=== PATIENT | female | born 1955 | race Caucasian/White ===

== ENCOUNTER 2019-06-04 08:07 | Outpatient (CLI) | payer OTHER, SELFPAY ==
[2019-06-04 09:07] LABS: Alanine Aminotransferase 19 U/L (4-35); Alkaline Phosphatase 79 U/L (38-126); Aspartate Amino Transferase 29 U/L (14-36); Bilirubin,Total 0.5 mg/dL (0.2-1.3); Blood Urea Nitrogen 21 mg/dL (7-17); Calcium 8.9 mg/dL (8.4-10.2); Carbon Dioxide 24 mmol/L (22-30); Chloride 103 mmol/L (98-107); Cholesterol 186 mg/dL (0-200); Estimated Glomerular Filt Rate > 60; Glucose 162 mg/dL (65-105); HDL Direct 50 mg/dL; Sodium 137 mmol/L (137-145); Triglycerides 64 mg/dL (<150)
[2019-06-04 09:17] LABS: LDL Cholesterol Direct 119 mg/dL
[2019-06-04 09:58] LABS: Creatinine Urine 150.9 mg/dL
[2019-06-04 10:03] LABS: MALB Creatinine Ratio 27.8 mg/g (0-30)
[2019-06-04 10:14] LABS: Vitamin D 25 Hydroxy 14.9 ng/mL
== END 2019-06-04 08:08 | disposition home or self-care (01) ==
PROVIDERS: PCP Family Medicine; Visit Provider Family Medicine
DX: Z13.6 Encounter for screening for cardiovascular disorders (principal); Z79.899 Other long term (current) drug therapy; E11.9 Type 2 diabetes mellitus without complications; E55.9 Vitamin D deficiency, unspecified
CPT/HCPCS: 36415; 80053; 80061; 82043; 82306; 83036

== ENCOUNTER 2019-06-07 15:24 | Outpatient (RCR) | payer OTHER, SELFPAY ==
[2019-03-30 14:13] LABS: INR 4.5; Prothrombin Time 42.1 Seconds (11.1-14.7)
[2019-04-12 14:19] LABS: INR 2.6; Prothrombin Time 27.6 Seconds (11.1-14.7)
[2019-05-20 14:09] LABS: INR 3.2
[2019-06-07 15:44] LABS: INR 2.9; Prothrombin Time 29.5 Seconds (11.1-14.7)
== END 2019-06-28 23:59 | disposition home or self-care (01) ==
LOC: ANHLAB 15:24
PROVIDERS: PCP Family Medicine; Visit Provider Specialist
DX: I48.91 Unspecified atrial fibrillation (principal); Z79.01 Long term (current) use of anticoagulants
CPT/HCPCS: 36415; 85610

== ENCOUNTER → 2019-08-03 18:07 | Outpatient (CLI) | payer OTHER, SELFPAY ==
--- NOTE | ~2019-08-03 | XR_ITS ---
EXAMINATION: XR foot LT min 3V EXAM DATE: 08/03/2019 18:26 INDICATION: Pain in left great toe underwent show mild, intermittent for months. TECHNIQUE: Left foot dorsoplantar, lateral and oblique projections obtained and reviewed. There is n o prior study for comparison. FINDINGS: Left metatarsal bones unremarkable. There are no bony erosions identified. There are no a cute fractures or dislocations identified. There is no subcutaneous gas. The soft tissue is unremar kable. There is a fibular plate. There is mild polyarticular primary osteoarthritis. Moderate-size d inferior calcaneal spur. IMPRESSION: Chronic findings as above. Reviewed, dictated and finalized at location A. IMPRESSION: Chronic findings as above.
== END ==
PROVIDERS: PCP Family Medicine; Visit Provider Family Medicine
DX: M79.672 Pain in left foot (principal)
CPT/HCPCS: 73630

== ENCOUNTER 2019-09-23 09:21 | Outpatient (RCR) | payer OTHER, SELFPAY ==
[2019-07-04 14:34] LABS: INR 2.5; Prothrombin Time 26.9 Seconds (11.1-14.7)
[2019-08-12 08:58] LABS: INR 2.8; Prothrombin Time 28.7 Seconds (11.1-14.7)
[2019-09-12 16:14] LABS: INR 1.4; Prothrombin Time 16.5 Seconds (11.1-14.7)
[2019-09-23 09:44] LABS: INR 2.8; Prothrombin Time 28.6 Seconds (11.1-14.7)
== END 2019-10-02 23:59 | disposition home or self-care (01) ==
LOC: ANHLAB 09:21
PROVIDERS: PCP Family Medicine; Visit Provider Specialist
DX: Z51.81 Encounter for therapeutic drug level monitoring (principal); I48.91 Unspecified atrial fibrillation; Z79.01 Long term (current) use of anticoagulants
CPT/HCPCS: 36415; 85610

== ENCOUNTER 2020-01-10 15:14 | Outpatient (RCR) | payer OTHER, SELFPAY ==
[2019-10-26 15:10] LABS: INR 2.7; Prothrombin Time 28.5 Seconds (11.1-14.7)
[2019-11-23 14:46] LABS: INR 2.8; Prothrombin Time 28.8 Seconds (11.1-14.7)
[2019-12-22 13:56] LABS: INR 3.6; Prothrombin Time 35.4 Seconds (11.1-14.7)
[2019-12-29 14:20] LABS: INR 3.4; Prothrombin Time 34.1 Seconds (11.1-14.7)
[2020-01-10 16:23] LABS: INR 2.1; Prothrombin Time 23.1 Seconds (11.1-14.7)
== END 2020-01-24 23:59 | disposition home or self-care (01) ==
LOC: ANHLAB 15:14
PROVIDERS: PCP Family Medicine; Visit Provider Specialist
DX: Z51.81 Encounter for therapeutic drug level monitoring (principal); I48.91 Unspecified atrial fibrillation; Z79.01 Long term (current) use of anticoagulants
CPT/HCPCS: 36415; 85610

== ENCOUNTER 2020-04-16 13:52 | Outpatient (RCR) | payer OTHER, SELFPAY ==
[2020-02-07 14:15] LABS: INR 2.1; Prothrombin Time 23.3 Seconds (11.1-14.7)
[2020-03-21 14:03] LABS: INR 2.4; Prothrombin Time 26.9 Seconds (11.1-14.7)
[2020-04-16 15:06] LABS: INR 2.2
== END 2020-05-07 23:59 | disposition home or self-care (01) ==
LOC: ANHLAB 13:52
PROVIDERS: PCP Family Medicine; Visit Provider Specialist
DX: Z51.81 Encounter for therapeutic drug level monitoring (principal); I48.91 Unspecified atrial fibrillation; I48.20 Chronic atrial fibrillation, unspecified; Z79.01 Long term (current) use of anticoagulants; Z79.899 Other long term (current) drug therapy
CPT/HCPCS: 36415; 85610

== ENCOUNTER 2020-05-19 07:38 | Outpatient (CLI) | payer OTHER, SELFPAY ==
[2020-05-19 08:33] LABS: Alanine Aminotransferase 19 U/L (4-35); Albumin Level 4.1 g/dL (3.5-5.1); Alkaline Phosphatase 61 U/L (38-126); Anion Gap 5 mmol/L (8-16); Aspartate Amino Transferase 28 U/L (14-36); Bilirubin,Total 0.5 mg/dL (0.2-1.3); Blood Urea Nitrogen 19 mg/dL (7-17); Carbon Dioxide 30 mmol/L (22-30); Chloride 105 mmol/L (98-107); Cholesterol 173 mg/dL (0-200); Estimated Glomerular Filt Rate > 60; Glucose 147 mg/dL (65-105); HDL Direct 50 mg/dL; Potassium 4.3 mmol/L (3.4-5.0); Sodium 140 mmol/L (137-145); Triglycerides 80 mg/dL (<150)
[2020-05-19 08:44] LABS: LDL Cholesterol Direct 100 mg/dL
[2020-05-19 09:31] LABS: Creatinine Urine 92.8 mg/dL
[2020-05-19 09:36] LABS: MALB Creatinine Ratio 25.2 mg/g (0-30); Microalbumin Urine Random 23.4 mg/L (0-16.7)
[2020-05-19 09:47] LABS: Vitamin D 25 Hydroxy 36.9 ng/mL
[2020-05-19 10:11] LABS: Hemoglobin A1C 6.4 % (<5.7)
== END 2020-05-19 07:39 | disposition home or self-care (01) ==
LOC: ANHLAB 07:44
PROVIDERS: PCP Family Medicine; Visit Provider Family Medicine
DX: E55.9 Vitamin D deficiency, unspecified (principal); E11.9 Type 2 diabetes mellitus without complications; Z13.6 Encounter for screening for cardiovascular disorders; Z79.899 Other long term (current) drug therapy
CPT/HCPCS: 36415; 80053; 80061; 82043; 82306; 83036

== ENCOUNTER 2020-07-11 14:47 | Outpatient (CLI) | payer OTHER, SELFPAY ==
--- NOTE | ~2020-07-11 | MM_ITS ---
EXAMINATION: MM screening [facility] BI w anuja HISTORY: Screening TECHNIQUE: Craniocaudal and mediolateral oblique 3-D tomosynthesis images were obtained and synthetic 2-D images were generated. CAD analysis was submitted and interpreted. COMPARISON: 11/08/2018, 08/20/2017, 07/16/2016 bilateral digital screening mammogram examinations BREAST PARENCHYMAL COMPOSITION: There are scattered areas of fibroglandular density. FINDINGS: Asymmetric approximately 5.5 mm opacity is noted in the posterior outer right breast on CC projection (craniocaudal Tomosynthesis image 17/54). Diagnostic right mammogram and right breast ultr asound examination are recommended. Otherwise there is no evidence of suspicious mass, calcification, or architectural distortion to sugg est malignancy in either breast. There has been no other suspicious interval change. IMPRESSION: 1. Asymmetric 5 x 5 mm opacity in the posterior outer right breast 2. Diagnostic right mammogram and right breast ultrasound examination are recommended. BI-RADS Category 0: Incomplete: Needs additional imaging evaluation. Reviewed, dictated and finalized at location A. [employer] IMPRESSION: 1. Asymmetric 5 x 5 mm opacity in the posterior outer right breast 2. Diagnostic right mammogram and right breast ultrasound examination are recom mended. BI-RADS Category 0: Incomplete: Needs additional imaging evaluation.
--- NOTE | ~2020-07-11 | DEXA_ITS ---
Bone Density Report Name: Maris Cho Age: 64 Sex: Female Ethnicity: White Date of : 1955 Indication: postmenopausal; height loss; prior fracture; Referring Provider: LOWELL, ARI Tan Study: Bone densitometry was performed. Exam Date: July 11, 2020 Accession number: [id number] Bone Density: Region BMD T-score Z-score Classification AP Spine (L1-L4) 1.088 0.4 2.0 Normal Femoral Neck (Left) 0.687 -1.5 0.0 Osteopenia Total Hip (Left) 0.905 -0.3 0.8 Normal Total Hip Bilateral Avg 0.927 -0.2 1.0 Normal Femoral Neck (Right) 0.699 -1.4 0.1 Osteopenia Total Hip (Right) 0.947 0.0 1.2 Normal World Health Organization criteria for BMD impression classify patients as: Normal (T-score at or above -1.0), Osteopenia (T-score between -1.0 and -2.5), or Osteoporosis (T-score at or below -2.5). 10-year Fracture Risk(1): Major Osteoporotic Fracture 12% Hip Fracture 1.1% Reported Risk Factors: [place] (), Neck BMD=0.687, BMI=40.2, previous fracture (1) FRAX(R) Version 3.08. Fracture probability calculated for an untreated patient. Fracture probability may be lower if the patient has received treatment. Previous Exams: Region Exam Age BMD T-score BMD Change BMD Change Date g/cm2 vs Baseline vs Previous AP Spine(L1-L4) 07/11/2020 64 1.088 0.4 0.025(2.3%)# -0.026(-2.4%)* 07/02/2016 60 1.114 0.6 0.051(4.8%)# 0.051(4.8%)# 08/24/2006 50 1.063 0.1 Total Hip(Left) 07/11/2020 64 0.905 -0.3 -0.122(-11.9%) 0.016(1.8%) 07/02/2016 60 0.889 -0.4 -0.138(-13.5%) -0.138(-13.5%) 08/24/2006 50 1.028 0.7 Total Hip(Right) 07/11/2020 64 0.947 0.0 -0.123(-11.5%) -0.010(-1.1%) 07/02/2016 60 0.958 0.1 -0.113(-10.5%) -0.113(-10.5%) 08/24/2006 50 1.071 1.1 *Denotes significance at 95% confidence level, LSC for AP Spine = 0.022 g/cm2, LSC for Total Hip = 0.027 g/cm2 Clinical Information Provided by Patient: Has had a low trauma fracture Has used the following medications: Vitamin D Patient maximum height was 66 Menopause Age: 47 No regular weight bearing exercise Drinks caffeinated beverages Onset of menses at age 14 Number of children 2 Impression: The patient has low bone mass, based on the Left Femoral Neck T-score. The patient has an estimated ten-year risk of hip fracture of 1.1% and an estimated ten-year risk of major fracture of 12%, based on the WHO FRAX algorithm. The patient has r
== END 2020-07-11 14:48 | disposition home or self-care (01) ==
LOC: ANHIMG 14:51
PROVIDERS: PCP Family Medicine; Visit Provider Family Medicine
DX: Z12.31 Encounter for screening mammogram for malignant neoplasm of breast (principal); Z78.0 Asymptomatic menopausal state; R92.8 Other abnormal and inconclusive findings on diagnostic imaging of breast; M85.852 Other specified disorders of bone density and structure, left thigh; M85.851 Other specified disorders of bone density and structure, right thigh
CPT/HCPCS: 77063; 77067; 77080

== ENCOUNTER 2020-07-13 13:50 | Outpatient (RCR) | payer OTHER, SELFPAY ==
[2020-05-19 08:32] LABS: INR 2.9; Prothrombin Time 30.7 Seconds (11.1-14.7)
[2020-06-20 14:02] LABS: INR 1.8; Prothrombin Time 21.5 Seconds (11.1-14.7)
[2020-07-13 14:27] LABS: INR 2.7; Prothrombin Time 29.1 Seconds (11.1-14.7)
== END 2020-08-17 23:59 | disposition home or self-care (01) ==
LOC: ANHLAB 13:50
PROVIDERS: PCP Family Medicine; Visit Provider Specialist
DX: Z51.81 Encounter for therapeutic drug level monitoring (principal); I48.20 Chronic atrial fibrillation, unspecified; I48.91 Unspecified atrial fibrillation; Z79.899 Other long term (current) drug therapy; Z79.01 Long term (current) use of anticoagulants
CPT/HCPCS: 36415; 85610

== ENCOUNTER 2020-08-06 11:38 | Outpatient (CLI) | payer OTHER, SELFPAY ==
--- NOTE | ~2020-08-06 | MMUS_ITS ---
EXAMINATION: MM diagnostic mammo unilat RT, US breast RT limited HISTORY: Asymmetric 5 x 5 mm opacity reported in posterior outer right breast on 07/11/2020 screening right mammogram views TECHNIQUE: Additional 3-D tomosynthesis images of the right breast were performed and synthetic 2-D i mages were generated. CAD analysis was submitted and interpreted. High resolution upper outer and low er-outer right breast ultrasound was performed. COMPARISON: 07/11/2020, 11/08/2018, 08/10/2017 bilateral digital screening mammogram examinations FINDINGS: MAMMOGRAPHIC FINDINGS: No reproducible suspicious mass or architectural distortion, malignant calcification, skin thickening or retraction is evident. ULTRASOUND: There is no evidence of focal abnormal solid or cystic lesion in the upper outer or lower outer right breast IMPRESSION: 1. No mammographic evidence of malignancy 2. Routine mammographic screening is recommended BI-RADS Category 1: Negative Reviewed, dictated and finalized at location A. IMPRESSION: 1. No mammographic evidence of malignancy 2. Routine mammographic screening is recommended BI-RADS Category 1: Negative
== END 2020-08-06 11:39 | disposition home or self-care (01) ==
LOC: ANHIMG 11:39
PROVIDERS: PCP Family Medicine; Visit Provider Family Medicine
DX: R92.8 Other abnormal and inconclusive findings on diagnostic imaging of breast (principal)
CPT/HCPCS: 76642; 77065

== ENCOUNTER 2020-10-22 13:51 | Outpatient (RCR) | payer OTHER, SELFPAY ==
[2020-08-20 16:53] LABS: INR 1.5; Prothrombin Time 18.3 Seconds (11.1-14.7)
[2020-08-31 14:15] LABS: INR 2.3; Prothrombin Time 25.8 Seconds (11.1-14.7)
[2020-09-24 13:59] LABS: INR 2.4; Prothrombin Time 26.9 Seconds (11.1-14.7)
[2020-10-22 14:26] LABS: INR 2.6; Prothrombin Time 28.3 Seconds (11.1-14.7)
== END 2020-11-18 23:59 | disposition home or self-care (01) ==
LOC: ANHLAB 13:51
PROVIDERS: PCP Family Medicine; Visit Provider Specialist
DX: Z51.81 Encounter for therapeutic drug level monitoring (principal); I48.20 Chronic atrial fibrillation, unspecified; Z79.899 Other long term (current) drug therapy; Z79.01 Long term (current) use of anticoagulants
CPT/HCPCS: 36415; 85610

== ENCOUNTER 2020-11-19 15:09 | Emergency (ER) | payer OTHER, SELFPAY ==
[2020-11-19 15:14] VITALS: BP 130/91; PULSE 98; RESP 18; TEMP 36.9; O2SAT 100
[2020-11-19 16:39] VITALS: BP 99/70; PULSE 101; RESP 16; O2SAT 99
[2020-11-19 17:02] LABS: Basophils Absolute Auto 0.1 K/mm3 (0.0-0.1); Basophils Percent Auto 1.1 % (0.2-1.2); Eosinophils Absolute Auto 0.5 K/mm3 (0-0.3); Eosinophils Percent Auto 6.3 % (0-4.4); Hemoglobin 12.6 g/dL (12.0-15.0); Immature Granulocyte Absolute 0.02 K/mm3 (0.00-0.031); Immature Granulocyte Percent A 0.3 % (0-0.5); Lymphocytes Absolute Auto 2.24 K/mm3 (0.9-3.2); Lymphocytes Percent Auto 29.4 % (18.3-44.2); Mean Corpuscular HGB Conc 31.5 g/dl (32-36); Mean Corpuscular Hemoglobin 30.1 pg (26-34); Mean Corpuscular Volume 95.5 fl (80-100); Mean Platelet Volume 9.6 fl (7.4-10.4); Monocytes Absolute Auto 0.5 K/mm3 (0.1-0.6); Monocytes Percent Auto 6.8 % (2.6-8.5); Neutrophils Absolute Auto 4.3 K/mm3 (1.3-6.7); Neutrophils Percent Auto 56.1 % (45.5-73.1); Platelet Count Result 226 k/mm3 (150-375); Red Blood Count 4.19 M/mm3 (4.2-5.4); Red Cell Distribution Width 14.1 % (11.5-14.5); White Blood Count 7.6 K/mm3 (4.5-10.0)
[2020-11-19 17:09] LABS: Alanine Aminotransferase 19 U/L (4-35); Albumin Level 4.2 g/dL (3.5-5.1); Alkaline Phosphatase 74 U/L (38-126); Anion Gap 8 mmol/L (8-16); Aspartate Amino Transferase 31 U/L (14-36); Bilirubin,Total 0.5 mg/dL (0.2-1.3); Blood Urea Nitrogen 19 mg/dL (7-17); Calcium 8.6 mg/dL (8.4-10.2); Carbon Dioxide 27 mmol/L (22-30); Chloride 107 mmol/L (98-107); Estimated CRCL calculation 71 ml/min; Estimated Glomerular Filt Rate > 60; Glucose 107 mg/dL (65-110); Potassium 3.7 mmol/L (3.4-5.0); Sodium 142 mmol/L (137-145)
[2020-11-19 17:11] LABS: INR 2.6; Prothrombin Time 27.3 Seconds (11.1-14.7)
[2020-11-19 17:12] LABS: Partial Thromboplastin Time 32.4 SECONDS (22.3-36.8)
--- NOTE | 2020-11-19 17:34 | ED.RECABL ---
HPI - Recheck/Abnormal Lab/Rx General Chief Complaint: Recheck/Abnormal Lab/Rx Stated Complaint: abnormal INR Time Seen by Provider: 11/19/20 17:23 History of Present Illness HPI narrative: 64 yo female w/ h/o atrial fibrillation presents to the ED for High INR. She had it checked this morning and she was called and told to come to the ED because it was high. On chart review it shows >19. She denies any symptoms. She has had no recent changes in dosage or diet. Related Data Home Medications Medication Instructions Recorded Confirmed digoxin 125 mcg (0.125 mg) tablet 125 mcg PO DAILY 03/20/20 03/26/20 gabapentin 600 mg tablet 600 mg PO DAILY 03/20/20 03/26/20 glipizide 5 mg tablet 5 mg PO DAILY 03/20/20 03/26/20 lisinopril 5 mg tablet 5 mg PO DAILY 03/20/20 03/26/20 metformin 500 mg tablet 500 mg PO DAILY 03/20/20 03/26/20 warfarin 6 mg tablet 6 mg PO DAILY 03/20/20 03/26/20 Allergies Allergy/AdvReac Type Severity Reaction Status Date / Time No Known Allergies Allergy Unknown Verified 11/19/20 15:17 Review of Systems Review of Systems: All systems reviewed & are unremarkable except as noted in HPI and below Constitutional: Constitutional: Denies weakness ENT: Denies dizziness Cardiovascular: Cardiovascular: Denies chest pain Respiratory: Respiratory: Denies dyspnea Gastrointestinal: Gastrointestinal: Reports no additional gastrointestinal complaints Genitourinary: Genitourinary: Denies hematuria Neurologic: Denies confusion and Denies headache(s) Hematologic/Lymphatic: Hematologic/Lymphatic: Denies easy bleeding and Denies easy bruising [facility] Past Medical History Medical History Diabetes Hypertension Family History Family History Father Family history of lung cancer Mother Family history of lung cancer Social History Social History Smoking status: Never smoker Alcohol intake: never Exam Const: General: healthy appearing, no acute distress and alert Orientation/consciousness: patient oriented x3 HENMT: Head: normal to inspection and no hematomas Resp: Effort & Inspection: normal respiratory effort Auscultation: clear to auscultation bilaterally Cardio: Rate: regular rate Rhythm: regular rhythm Skin: General skin exam: normal color and no pallor Wounds: no wounds Neuro: General: patient oriented x3 and moves all extremities Speech: normal speech Extrem: General: normal to inspection Course Vital Signs Vital signs: Vital Signs Temperature 36.9 C 11/19/20 15:14 Pulse Rate 98 11/19/20 15:14 Respiratory Rate 18 11/19/20 15:14 Blood Pressure 130/91 H 11/19/20 15:14 Pulse Oximetry 100 11/19/20 15:14 Temperature 36.9 C 11/19/20 15:14 Pulse Rate 82 11/19/20 18:02 Respiratory Rate 17 11/19/20 18:02 Blood Pressure 128/82 11/19/20 18:02 Pulse Oximetry 100 11/19/20 18:02 MDM - Recheck/Abnormal Lab/Rx MDM Narrative Medical decision making narrative: appears to be lab error Medical Records Attestation: I reviewed the patient's medical records. Lab Data Attestation: I reviewed the patient's lab results. Result diagrams: 11/19/20 16:50 11/19/20 16:50 Labs: Lab Results 11/19/20 11/19/20 11/19/20 Range/Units 16:50 16:50 16:50 WBC 7.6 (4.5-10.0) K/mm3 RBC 4.19 L (4.2-5.4) M/mm3 Hgb 12.6 (12.0-15.0) g/dL Hct 40.0 (37.0-47.0) % MCV 95.5 (80-100) fl MCH 30.1 (26-34) pg MCHC 31.5 L (32-36) g/dl RDW 14.1 (11.5-14.5) % Plt Count 226 (150-375) k/mm3 MPV 9.6 (7.4-10.4) fl Immature Gran % (Auto) 0.3 (0-0.5) % Neut % (Auto) 56.1 (45.5-73.1) % Lymph % (Auto) 29.4 (18.3-44.2) % [place] % (Auto) 6.8 (2.6-8.5) % Eos % (Auto) 6.3 H (0-4.4) % Baso % (Auto) 1.1 (0.2-1.2) % Lym
[2020-11-19 17:41] VITALS: BP 129/71; PULSE 66; RESP 16; O2SAT 100
[2020-11-19 18:02] VITALS: BP 128/82; PULSE 82; RESP 17; O2SAT 100
== END 2020-11-19 18:18 | disposition home or self-care (01) ==
LOC: ANHED 17:56
PROVIDERS: Emergency Provider Emergency Medicine; PCP Family Medicine
DX: R79.1 Abnormal coagulation profile (principal); I10 Essential (primary) hypertension; E11.9 Type 2 diabetes mellitus without complications; Z79.84 Long term (current) use of oral hypoglycemic drugs; Z79.01 Long term (current) use of anticoagulants
CPT/HCPCS: 36415; 80053; 85025; 85610; 85730; 99283

== ENCOUNTER 2020-12-15 10:57 | Emergency (ER) | payer OTHER, SELFPAY ==
--- NOTE | ~2020-12-15 | XR_ITS ---
EXAMINATION: XR hand RT min 3V DATE: 12/15/2020 14:26 INDICATION: Fall with bruising to the palm of the right hand. TECHNIQUE: Posteroanterior, oblique and lateral views of the right hand were obtained. COMPARISON: None. FINDINGS: Alignment is normal. No fracture. Minimal to mild polyarticular osteoarthritis at the triscaphe, firs t carpometacarpal and multiple metacarpophalangeal and interphalangeal joints. Soft tissues are unrem arkable. IMPRESSION: 1. Minimal to mild polyarticular osteoarthritis at the right hand. No acute osseous abnormality. Reviewed, dictated and finalized at location A. IMPRESSION: 1. Minimal to mild polyarticular osteoarthritis at the right hand. No acute oss eous abnormality.
--- NOTE | ~2020-12-15 | XR_ITS ---
EXAMINATION: XR elbow LT min 3V DATE: 12/15/2020 14:26 INDICATION: Left elbow pain post fall TECHNIQUE: Anteroposterior, two oblique and lateral views of the left elbow were obtained. COMPARISON: None. FINDINGS: Mildly impacted extra articular fracture at the left radial neck with moderate sized left elbow joint effusion. No other fractures identified. Alignment remains near-anatomic. Mild osteoarthritis at the left elbow. IMPRESSION: 1. Mildly impacted intra-articular fracture at the left radial neck. Reviewed, dictated and finalized at location A.
--- NOTE | ~2020-12-15 | XR_ITS ---
EXAMINATION: XR forearm LT 2V INDICATION: Left forearm pain, initial encounter TECHNIQUE: Two views of the left forearm are obtained. COMPARISON: None available FINDINGS: There is an elbow joint effusion. There appears to be a radial neck fracture. No additional acute osseous findings are suspected. The soft tissues are unremarkable. IMPRESSION: 1. Elbow joint effusion with possible radial neck fracture. Dedicated elbow radiographs are recommend ed. Reviewed, dictated and finalized at location A. IMPRESSION: 1. Elbow joint effusion with possible radial neck fracture. Dedicated elbow rad iographs are recommended.
--- NOTE | ~2020-12-15 | XR_ITS ---
EXAMINATION: XR femur RT min 2V, XR knee RT 3V DATE: 12/15/2020 14:26 INDICATION: Right knee pain and bruising at the right thigh post fall TECHNIQUE: 1. Anteroposterior and lateral views of the right femur were obtained on overlapping proximal and dis nakia images. 2. Anteroposterior, oblique and crosstable lateral views of the right knee were obtained COMPARISON: None. FINDINGS: Alignment is normal. Right total knee arthroplasty with patellar resurfacing which appears well seate d with no surrounding lucency to suggest loosening. No fracture. Small right knee joint effusion with out layering lipohemarthrosis. Mild right hip osteoarthritis. Enthesophytes at the greater trochanter and at the inferior anterior right iliac spine. Soft tissues are unremarkable. IMPRESSION: 1. Small right knee joint effusion. No acute osseous abnormality at the right knee or femur. Reviewed, dictated and finalized at location A. IMPRESSION: 1. Small right knee joint effusion. No acute osseous abnormality at the right k nee or femur.
--- NOTE | ~2020-12-15 | XR_ITS ---
EXAMINATION: XR forearm RT 2V INDICATION: Right elbow pain, initial encounter TECHNIQUE: Two views of the right forearm are obtained. COMPARISON: None available FINDINGS: There is an oblique fracture at the lateral aspect of the radial head which extends to the articular surface. An elbow joint effusion is present. No additional acute osseous findings are evide nt. There is dorsal soft tissue swelling of the forearm. IMPRESSION: 1. Acute intra-articular fracture with elbow joint effusion. Reviewed, dictated and finalized at location A.
[2020-12-15 11:13] VITALS: BP 137/81; PULSE 58; RESP 18; TEMP 36.7; O2SAT 100
--- NOTE | 2020-12-15 14:16 | ED.GENADULT ---
HPI - General Adult General Chief complaint: Fall Stated complaint: fall, right arm injury Time Seen by Provider: 12/15/20 13:02 Source: patient Mode of arrival: ambulatory Limitations: no limitations History of Present Illness HPI narrative: Patient presents for evaluation after experiencing a fall just prior to arrival. She was walking down an uneven sidewalk when she tripped and landed on her left side. She did not hit her head or have loss of consciousness. She is currently on Coumadin for atrial fibrillation with 8mg daily x 4 days, followed by 6mg, 5mg and then 6mg the other days. She states her last INR was this month and was within normal range. She currently reports pain in the right elbow radiating into the right forearm and up through the midshaft of the right humerus. Pain is 8 out of 10 in severity. Denies loss of range of motion but states that movement does worsen her symptoms. Denies paresthesias. She is left-hand dominant. She states that her left elbow is sore . She also has some bruising and abrasion to her right thigh. She has some pain in that area and has a history of a knee replacement on the right side. She has been ambulatory since the time of the injury. She tried taking Tylenol for her symptoms with some improvement after. Related Data Home Medications Medication Instructions Recorded Confirmed digoxin 125 mcg (0.125 mg) tablet 125 mcg PO DAILY 03/20/20 03/26/20 gabapentin 600 mg tablet 600 mg PO DAILY 03/20/20 03/26/20 glipizide 5 mg tablet 5 mg PO DAILY 03/20/20 03/26/20 lisinopril 5 mg tablet 5 mg PO DAILY 03/20/20 03/26/20 metformin 500 mg tablet 500 mg PO DAILY 03/20/20 03/26/20 warfarin 6 mg tablet 6 mg PO DAILY 03/20/20 03/26/20 Allergies Allergy/AdvReac Type Severity Reaction Status Date / Time No Known Allergies Allergy Unknown Verified 12/15/20 11:30 Review of Systems Review of Systems: CONSTITUTIONAL: Denies fever, chills, or sweats. EYES: Denies visual changes, redness, or discharge. ENT: Denies rhinorrhea, congestion, sore throat, or otalgia. CARDIOVASCULAR: Denies chest pain, palpitations, or edema. RESPIRATORY: Denies cough or dyspnea. GASTROINTESTINAL: Denies abdominal pain, nausea, vomiting, or diarrhea. GENITOURINARY: Denies dysuria or hematuria. SKIN: Reports abrasion and bruising to the right thigh. Reports bruising to the right hand. Denies rash or itching. MUSCULOSKELETAL: Reports pain in right elbow, forearm, wrist, hand. Reports pain in the left elbow, right thigh. NEUROLOGIC: Denies headache, numbness, dizziness, or weakness. PSYCHIATRIC: Denies anxiety or depression. [facility] Past Medical History Medical History Atrial fibrillation Diabetes Hypertension Surgical History Surgical History Previous section Status post right knee replacement Family History Family History Father Family history of lung cancer Mother Family history of lung cancer Social History Social History Smoking status: Never smoker Alcohol intake: never Living arrangements: alone Gender identity (if verbalized by the patient): Female Spiritual care concerns: No Exam Narrative: GENERAL: Well-appearing, well-nourished, and in no acute distress. HEAD: Normocephalic, atraumatic. EYES: PERRLA and EOMI. ENT: Nares clear, no rhinorrhea or epistaxis. Mucous membranes moist. Oropharynx without tonsillar hypertrophy exudate or other lesions. Bilateral TMs pearly nathan nonbulging NECK: Supple. No adenopathy or masses. No carotid bruits or JVD CHEST: Clear to auscultation. No respiratory distress. No wheezes rales or rhonchi HEART: Regular rate and rhythm. No murmur heard. Normal peripheral pulses. ABDOMEN: Soft, nontender, nondist
[2020-12-15] MEDS: HYDROcodone/acetaminophen (*CRX) 5-325 MG TABLET 2 TAB PO (14:49)
[2020-12-15 15:37] LABS: Basophils Absolute Auto 0.1 K/mm3 (0.0-0.1); Basophils Percent Auto 0.9 % (0.2-1.2); Eosinophils Absolute Auto 0.2 K/mm3 (0-0.3); Eosinophils Percent Auto 2.5 % (0-4.4); Hemoglobin 12.6 g/dL (12.0-15.0); Immature Granulocyte Absolute 0.04 K/mm3 (0.00-0.031); Immature Granulocyte Percent A 0.5 % (0-0.5); Lymphocytes Absolute Auto 2.08 K/mm3 (0.9-3.2); Lymphocytes Percent Auto 24.5 % (18.3-44.2); Mean Corpuscular HGB Conc 32.3 g/dl (32-36); Mean Corpuscular Hemoglobin 30.5 pg (26-34); Mean Corpuscular Volume 94.4 fl (80-100); Mean Platelet Volume 9.6 fl (7.4-10.4); Monocytes Absolute Auto 0.4 K/mm3 (0.1-0.6); Monocytes Percent Auto 5.2 % (2.6-8.5); Neutrophils Absolute Auto 5.7 K/mm3 (1.3-6.7); Neutrophils Percent Auto 66.4 % (45.5-73.1); Platelet Count Result 202 k/mm3 (150-375); Red Blood Count 4.13 M/mm3 (4.2-5.4); Red Cell Distribution Width 13.9 % (11.5-14.5); White Blood Count 8.5 K/mm3 (4.5-10.0)
[2020-12-15 15:47] LABS: INR 2.8; Partial Thromboplastin Time 37.1 SECONDS (22.3-36.8); Prothrombin Time 28.6 Seconds (11.1-14.7)
[2020-12-15 15:48] LABS: Alanine Aminotransferase 18 U/L (4-35); Albumin Level 4.1 g/dL (3.5-5.1); Alkaline Phosphatase 80 U/L (38-126); Anion Gap 6 mmol/L (8-16); Aspartate Amino Transferase 29 U/L (14-36); Bilirubin,Total 0.6 mg/dL (0.2-1.3); Blood Urea Nitrogen 16 mg/dL (7-17); Calcium 8.9 mg/dL (8.4-10.2); Carbon Dioxide 27 mmol/L (22-30); Chloride 107 mmol/L (98-107); Estimated CRCL calculation 89 ml/min; Estimated Glomerular Filt Rate > 60; Glucose 101 mg/dL (65-110); Potassium 4.2 mmol/L (3.4-5.0); Sodium 140 mmol/L (137-145)
[2020-12-15 16:20] VITALS: BP 130/62; PULSE 78; RESP 18; O2SAT 99
== END 2020-12-15 16:22 | disposition home or self-care (01) ==
PROVIDERS: Emergency Provider Nurse Practitioner; PCP Family Medicine
DX: S52.124A Nondisplaced fracture of head of right radius, initial encounter for closed fracture (principal); S52.132A Displaced fracture of neck of left radius, initial encounter for closed fracture; I48.91 Unspecified atrial fibrillation; Z79.01 Long term (current) use of anticoagulants; I10 Essential (primary) hypertension; E11.9 Type 2 diabetes mellitus without complications; Z79.84 Long term (current) use of oral hypoglycemic drugs; Z96.651 Presence of right artificial knee joint; M19.041 Primary osteoarthritis, right hand; W01.0XXA Fall on same level from slipping, tripping and stumbling without subsequent striking against object, initial encounter
CPT/HCPCS: 36415; 73080; 73090; 73130; 73552; 73562; 80053; 85025; 85610; 85730; 99284; A4565; A9270

== ENCOUNTER 2021-02-07 13:43 | Outpatient (RCR) | payer OTHER, SELFPAY ==
[2020-11-19 14:44] LABS: Prothrombin Time > 120.0 Seconds (11.1-14.7)
[2020-11-19 14:47] LABS: INR > 19.0
[2021-01-21 15:54] LABS: INR 4.3
[2021-01-31 12:31] LABS: Prothrombin Time 44.9 Seconds (11.1-14.7)
[2021-02-07 14:06] LABS: INR 2.5; Prothrombin Time 26.3 Seconds (11.1-14.7)
== END 2021-02-17 23:59 | disposition home or self-care (01) ==
LOC: ANHLAB 13:43
PROVIDERS: PCP Family Medicine; Visit Provider Specialist
DX: Z51.81 Encounter for therapeutic drug level monitoring (principal); I48.20 Chronic atrial fibrillation, unspecified; Z79.899 Other long term (current) drug therapy; Z79.01 Long term (current) use of anticoagulants
CPT/HCPCS: 36415; 85610

== ENCOUNTER 2021-04-06 07:22 | Outpatient (CLI) | payer OTHER, SELFPAY ==
[2021-04-06 08:32] LABS: Cholesterol 180 mg/dL (0-200); HDL Direct 45 mg/dL; Triglycerides 65 mg/dL (<150)
[2021-04-06 08:32] LABS: Hematocrit 38.7 % (37.0-47.0); Hemoglobin 12.7 g/dL (12.0-15.0); Mean Corpuscular HGB Conc 32.8 g/dl (32-36); Mean Corpuscular Volume 94.4 fl (80-100); Mean Platelet Volume 9.5 fl (7.4-10.4); Platelet Count Result 236 k/mm3 (150-375); Red Cell Distribution Width 13.2 % (11.5-14.5); White Blood Count 5.7 K/mm3 (4.5-10.0)
[2021-04-06 08:43] LABS: LDL Cholesterol Direct 108 mg/dL
[2021-04-06 08:54] LABS: Hemoglobin A1C 6.2 % (<5.7)
[2021-04-06 09:12] LABS: Vitamin D 25 Hydroxy 42.3 ng/mL
[2021-04-06 10:37] LABS: Creatinine Urine 106.6 mg/dL
[2021-04-06 10:41] LABS: MALB Creatinine Ratio 14.7 mg/g (0-30); Microalbumin Urine Random 15.7 mg/L (0-16.7)
[2021-04-08 09:12] LABS: Alanine Aminotransferase 17 U/L (4-35); Albumin Level 3.8 g/dL (3.5-5.1); Alkaline Phosphatase 71 U/L (38-126); Anion Gap 7 mmol/L (8-16); Aspartate Amino Transferase 28 U/L (14-36); Bilirubin,Total 0.3 mg/dL (0.2-1.3); Blood Urea Nitrogen 18 mg/dL (7-17); Calcium 8.8 mg/dL (8.4-10.2); Carbon Dioxide 25 mmol/L (22-30); Chloride 106 mmol/L (98-107); Estimated Glomerular Filt Rate > 60; Glucose 142 mg/dL (65-110); Potassium 4.7 mmol/L (3.4-5.0); Sodium 138 mmol/L (137-145)
== END 2021-04-06 07:23 | disposition home or self-care (01) ==
LOC: ANHLAB 07:30
PROVIDERS: PCP Family Medicine
DX: E13.42 Other specified diabetes mellitus with diabetic polyneuropathy (principal); E55.9 Vitamin D deficiency, unspecified
CPT/HCPCS: 36415; 80053; 80061; 82043; 82306; 83036; 85027

== ENCOUNTER 2021-04-22 13:31 | Outpatient (RCR) | payer OTHER, SELFPAY ==
[2021-02-18 14:34] LABS: INR 2.4; Prothrombin Time 25.3 Seconds (11.1-14.7)
[2021-03-27 12:45] LABS: INR 1.8; Prothrombin Time 20.5 Seconds (11.1-14.7)
[2021-04-22 17:14] LABS: INR 2.2; Prothrombin Time 23.8 Seconds (11.1-14.7)
== END 2021-05-19 23:59 | disposition home or self-care (01) ==
LOC: ANHLAB 13:31
PROVIDERS: PCP Family Medicine; Visit Provider Specialist
DX: Z51.81 Encounter for therapeutic drug level monitoring (principal); I48.91 Unspecified atrial fibrillation; Z79.01 Long term (current) use of anticoagulants
CPT/HCPCS: 36415; 85610

== ENCOUNTER 2021-08-22 13:40 | Outpatient (RCR) | payer OTHER, SELFPAY ==
[2021-05-27 14:11] LABS: INR 2.2; Prothrombin Time 23.8 Seconds (11.1-14.7)
[2021-07-22 13:56] LABS: Prothrombin Time 21.6 Seconds (11.1-14.7)
[2021-08-22 14:56] LABS: INR 1.6; Prothrombin Time 18.5 Seconds (11.1-14.7)
== END 2021-08-25 23:59 | disposition home or self-care (01) ==
LOC: ANHLAB 13:40
PROVIDERS: PCP Family Medicine; Visit Provider Specialist
DX: Z51.81 Encounter for therapeutic drug level monitoring (principal); I48.91 Unspecified atrial fibrillation; Z79.01 Long term (current) use of anticoagulants
CPT/HCPCS: 36415; 85610

== ENCOUNTER 2021-08-30 13:38 | Outpatient (CLI) | payer OTHER, SELFPAY ==
[2021-08-30 14:29] LABS: Prothrombin Time 21.6 Seconds (11.1-14.7)
== END 2021-08-30 13:39 | disposition home or self-care (01) ==
PROVIDERS: PCP Family Medicine; Visit Provider Specialist
DX: I48.91 Unspecified atrial fibrillation (principal); Z79.01 Long term (current) use of anticoagulants
CPT/HCPCS: 36415; 85610

== ENCOUNTER 2021-09-23 15:02 | Outpatient (CLI) | payer OTHER, SELFPAY ==
--- NOTE | ~2021-09-23 | MM_ITS ---
EXAMINATION: MM screening [facility] BI w anuja HISTORY: Screening mammogram TECHNIQUE: Craniocaudal and mediolateral oblique 3-D tomosynthesis images were obtained and synthetic 2-D images were generated. CAD analysis was submitted and interpreted. COMPARISON: Serial mammogram examinations dating back to August 10, 2017 BREAST PARENCHYMAL COMPOSITION: There are scattered areas of fibroglandular density. FINDINGS: Occasional bilateral benign calcifications. Stable minimal fibroglandular asymmetry. There is no evidence of suspicious mass, calcification, or architectural distortion to suggest malignancy i n either breast. There has been no suspicious interval change. IMPRESSION: 1. No mammographic evidence of malignancy. 2. Recommend routine screening mammography in one year. BI-RADS Category 2: Benign finding(s). Reviewed, dictated and finalized at location A.
== END 2021-09-23 15:03 | disposition home or self-care (01) ==
LOC: ANHIMG 15:04
PROVIDERS: PCP Family Medicine; Visit Provider Family Medicine
DX: Z12.31 Encounter for screening mammogram for malignant neoplasm of breast (principal)
CPT/HCPCS: 77063; 77067

== ENCOUNTER 2021-10-28 13:16 | Outpatient (RCR) | payer OTHER, SELFPAY ==
[2021-09-24 16:18] LABS: INR 2.2; Prothrombin Time 23.6 Seconds (11.1-14.7)
[2021-10-28 13:43] LABS: INR 2.2; Prothrombin Time 23.3 Seconds (11.1-14.7)
== END 2021-12-23 23:59 | disposition home or self-care (01) ==
LOC: ANHLAB 13:16
PROVIDERS: PCP Family Medicine; Visit Provider Specialist
DX: Z51.81 Encounter for therapeutic drug level monitoring (principal); I48.91 Unspecified atrial fibrillation; Z79.01 Long term (current) use of anticoagulants
CPT/HCPCS: 36415; 85610

== ENCOUNTER 2022-03-24 10:57 | Outpatient (RCR) | payer MEDICARE, SELFPAY ==
[2021-12-25 16:14] LABS: INR 1.8; Prothrombin Time 20.2 Seconds (11.1-14.7)
[2022-01-14 10:56] LABS: Prothrombin Time 21.8 Seconds (11.1-14.7)
[2022-02-26 13:03] LABS: INR 1.8; Prothrombin Time 19.8 Seconds (11.1-14.7)
== END 2022-03-25 23:59 | disposition home or self-care (01) ==
LOC: ANHLAB 10:57
PROVIDERS: PCP Family Medicine; Referring Provider Dentist; Visit Provider Specialist
DX: I48.91 Unspecified atrial fibrillation (principal)
CPT/HCPCS: 36415; 85610

== ENCOUNTER 2022-07-16 10:24 | Outpatient (RCR) | payer MEDICARE, SELFPAY ==
[2022-04-22 10:52] LABS: INR 1.6; Prothrombin Time 18.8 Seconds (11.1-14.7)
[2022-05-12 13:05] LABS: INR 1.8; Prothrombin Time 20.3 Seconds (11.1-14.7)
[2022-05-29 14:17] LABS: INR 1.9; Prothrombin Time 21.5 Seconds (11.1-14.7)
[2022-06-23 11:42] LABS: Prothrombin Time 21.8 Seconds (11.1-14.7)
[2022-07-16 11:36] LABS: INR 2.2
== END 2022-07-21 23:59 | disposition home or self-care (01) ==
LOC: ANHLAB 10:24
PROVIDERS: PCP Family Medicine; Visit Provider Specialist
DX: I48.91 Unspecified atrial fibrillation (principal)
CPT/HCPCS: 36415; 85610

== ENCOUNTER 2022-10-24 13:17 | Outpatient (RCR) | payer MEDICARE, SELFPAY ==
[2022-08-22 14:01] LABS: INR 2.1; Prothrombin Time 23.2 Seconds (11.1-14.7)
[2022-09-24 09:35] LABS: Prothrombin Time 23.5 Seconds (11.1-14.7)
[2022-10-24 13:59] LABS: INR 1.9; Prothrombin Time 23.4 Seconds (11.1-14.7)
== END 2022-11-20 23:59 | disposition home or self-care (01) ==
LOC: ANHLAB 13:17
PROVIDERS: PCP Family Medicine; Visit Provider Specialist
DX: I48.91 Unspecified atrial fibrillation (principal)
CPT/HCPCS: 36415; 85610

== ENCOUNTER → 2022-12-26 08:56 | Outpatient (CLI) | payer MEDICARE, SELFPAY ==
--- NOTE | ~2022-12-26 | XR_ITS ---
XR toe 1st LT min 2V 12/26/2022 10:09 Indication: Left first toe pain Procedure: 3 views left first toe Comparison: No prior studies for comparison. Findings: There is osteoarthritis of the first interphalangeal joint. Osteopenia. There are arterial calcifications. No fracture or traumatic malalignment. No significant soft tissue abnormality. No for eign bodies. No erosive changes. Impression: 1: Mild osteoarthritis of the first interphalangeal joint. Reviewed, dictated and finalized at location B. Impression: 1: Mild osteoarthritis of the first interphalangeal joint.
--- NOTE | ~2022-12-26 | XR_ITS ---
EXAMINATION: XR foot RT min 3V DATE: 12/26/2022 10:09 INDICATION: Right foot pain TECHNIQUE: Dorsoplantar, lateral, and 2 oblique views of the right foot were obtained. COMPARISON: None. FINDINGS: Bone alignment is normal. There is no fracture. There is mild to moderate osteoarthritis of multiple interphalangeal joints. There is mild osteoarthritis of the midfoot and at the first metata rsophalangeal joint. The soft tissues are unremarkable. A plantar calcaneal enthesophyte is noted. IMPRESSION: 1. Polyarticular osteoarthritis without acute osseous abnormality. Reviewed, dictated and finalized at location A.
== END ==
PROVIDERS: PCP Family Medicine; Visit Provider Nurse Practitioner Family
DX: M19.071 Primary osteoarthritis, right ankle and foot (principal); M19.072 Primary osteoarthritis, left ankle and foot
CPT/HCPCS: 73630; 73660

== ENCOUNTER 2023-01-23 00:33 | Day surgery (SDC) | payer MEDICARE, SELFPAY ==
[2023-01-12 14:03] VITALS: BMI 38.0
[2023-01-23 08:12] VITALS: BP 139/79; PULSE 113; RESP 20; TEMP 36.2; O2SAT 99; BMI 36.9
[2023-01-23 08:31] LABS: Glucose Point of Care 136 mg/dl (65-105)
[2023-01-23] MEDS: LACTATED RINGERS 1,000 ML 150 ML IV CONT (08:38)
--- NOTE | 2023-01-23 09:06 | PM.HPGS ---
History of Present Illness History of Present Illness Consent: Risks, benefits, and alternatives have been discussed and questions answered. Patient agrees to proceed with procedure. Chief complaint: family hx colon ca, hx colon polyps Narrative: Maris Cho is a 67 year old female Presents for screening colonoscopy. Patient was found to have a sessile serrated adenoma by previous colonoscopy 2015. Patient reports her current weight appetite bowel movements are normal. Patient denies abdominal pain. She has had no bleeding. There is a family history of colon cancer. Patient presents today for surveillance screening colonoscopy. [facility] Past Medical History Medical History Atrial fibrillation Diabetes Hypertension Surgical History Surgical History Previous section Status post right knee replacement Family History Family History Father Family history of lung cancer Mother Family history of lung cancer Social History Social History Smoking status: Never smoker Alcohol intake: never Alcohol use details: occasionally Substance use: never Substance use type: does not use Living arrangements: alone Gender identity (if verbalized by the patient): Female Spiritual care concerns: No Meds Home Medications and Allergies Home Medications Medication Instructions Recorded Confirmed Type digoxin 125 mcg (0.125 mg) tablet 125 mcg PO DAILY 03/20/20 01/12/23 History glipizide 5 mg tablet 5 mg PO DAILY 03/20/20 01/12/23 History metformin 500 mg tablet 500 mg PO DAILY 03/20/20 01/12/23 History warfarin 6 mg tablet 6 mg PO DAILY 03/20/20 01/12/23 History sodium,potassium,mag sulfates 17.5 See Rx Instructions PO .COMPLEX 12/10/22 Rx gram-3.13 gram-1.6 gram oral soln #354 mL (Suprep Bowel Prep Kit) ergocalciferol (vitamin D2) 1,250 50,000 unit PO WEEKLY 01/12/23 01/12/23 History mcg (50,000 unit) capsule gabapentin 800 mg tablet 800 mg PO TID 01/12/23 01/12/23 History lisinopril 2.5 mg tablet 2.5 mg PO DAILY 01/12/23 01/12/23 History Allergies Allergy/AdvReac Type Severity Reaction Status Date / Time No Known Allergies Allergy Unknown Verified 01/12/23 14:00 Vital Signs Vital Signs - 24 hr 01/23/23 08:12 Temperature 97.1 F L Pulse Rate 113 H Respiratory Rate 20 Blood Pressure 139/79 Pulse Oximetry 99 Oxygen Delivery Room Air Exam Narrative: Physical exam reveals patient to be alert. Vital signs stable. HEENT exam is unremarkable. Patient is anicteric. Lungs are clear to auscultation and percussion. Heart is without murmur or extra sounds. Abdomen bowel sounds are present soft nontender with no organomegaly. Digital external rectal exam is normal. Assessment and Plan Assessment and plan (1) History of colon polyps: Code(s): Z86.010 - Personal history of colonic polyps Status: Acute Assessment and Plan: Patient has a history of adenomatous colon polyp removed from the colon in 2016. Plan for surveillance colonoscopy now and consider this a 5 year intervals. (2) Family hx of colon cancer: Code(s): Z80.0 - Family history of malignant neoplasm of digestive organs Status: Acute
--- NOTE | 2023-01-23 09:17 | WPDANESEPPF ---
Anes - Initial Pre Proc Eval Procedure: Operation Date: 01/23/23 09:30 Proposed Procedures p Colonoscopy - Daryl Jones MD Date/Time: 01/23/23 09:17 Surgeon: Daryl Jones MD Pre Op Diagnosis: family hx colon ca, hx colon polyps Patient Data Age: 67 Gender: F Height: 1.68 m Weight: 103.9 kg Last Vital Signs Temp 97.1 F L 01/23/23 08:12 Pulse 113 H 01/23/23 08:12 Resp 20 01/23/23 08:12 BP 139/79 01/23/23 08:12 Pulse Ox 99 01/23/23 08:12 O2 Del Method Room Air 01/23/23 08:12 Allergies Allergy/AdvReac Type Severity Reaction Status Date / Time No Known Allergies Allergy Unknown Verified 01/12/23 14:00 Home Medications Medication Instructions Recorded Confirmed Type digoxin 125 mcg (0.125 mg) tablet 125 mcg PO DAILY 03/20/20 01/12/23 History glipizide 5 mg tablet 5 mg PO DAILY 03/20/20 01/12/23 History metformin 500 mg tablet 500 mg PO DAILY 03/20/20 01/12/23 History warfarin 6 mg tablet 6 mg PO DAILY 03/20/20 01/12/23 History sodium,potassium,mag sulfates 17.5 See Rx Instructions PO .COMPLEX 12/10/22 Rx gram-3.13 gram-1.6 gram oral soln #354 mL (Suprep Bowel Prep Kit) ergocalciferol (vitamin D2) 1,250 50,000 unit PO WEEKLY 01/12/23 01/12/23 History mcg (50,000 unit) capsule gabapentin 800 mg tablet 800 mg PO TID 01/12/23 01/12/23 History lisinopril 2.5 mg tablet 2.5 mg PO DAILY 01/12/23 01/12/23 History Laboratory Tests 01/23/23 01/23/23 08:20 08:31 PT Pending INR Pending POC Capillary Glucose 136 H mg/dl (65-105) Patient hx anesthesia problems: none Family hx anesthesia problems: none Results Review: All pre-operative results and documents have been reviewed as part of the pre-operative evaluation. [facility] Past Medical History Medical History Atrial fibrillation Diabetes Hypertension Surgical History Surgical History Previous section Status post right knee replacement Family History Family History Father Family history of lung cancer Mother Family history of lung cancer Social History Social History Smoking status: Never smoker Alcohol intake: never Alcohol use details: occasionally Substance use: never Substance use type: does not use Living arrangements: alone Gender identity (if verbalized by the patient): Female Spiritual care concerns: No Anes - Eval Final PreProcedure Day of Procedure 01/23/23 09:17 Patient weight: obese Heart: irregular rhythm Lungs: clear to auscultation Airway: Mallampati scale class II Neurological: alert and oriented Last oral intake: >/= 8 hours ASA classification: III Emergent: no Anesthetic plan: proceed Anesthesia type and monitoring: general GIVS and standard monitoring Results Review: All pre-operative results and documents have been reviewed as part of the pre-operative evaluation. Informed Consent: The patient's anesthetic plan and its attendant risks and benefits were discussed with the patient/family/POA. Questions were solicited and answers provided to the satisfaction of the patient/family/POA.
[2023-01-23 09:19] LABS: INR 1.1; Prothrombin Time 14.9 Seconds (11.1-14.7)
[2023-01-23 10:11] VITALS: BP 92/54; PULSE 68; RESP 22; O2SAT 100
--- NOTE | 2023-01-23 10:11 | SUR.OPER ---
Dr. Jones notified that polyps ended up in the same trap. No further orders received.
[2023-01-23 10:21] VITALS: BP 119/60; PULSE 64; RESP 19; O2SAT 100
[2023-01-23 10:31] VITALS: BP 122/63; PULSE 89; RESP 18; O2SAT 100
== END 2023-01-23 10:40 | disposition home or self-care (01) ==
PROVIDERS: PCP Family Medicine; Visit Provider Internal Medicine Gastroenterology
PROC: 0DJD8ZZ Inspection of Lower Intestinal Tract, Via Natural or Artificial Opening Endoscopic (ICD-10-PCS; CPT 45378; principal; 2023-01-23 09:30)
DX: Z12.11 Encounter for screening for malignant neoplasm of colon (principal); D12.2 Benign neoplasm of ascending colon; D12.3 Benign neoplasm of transverse colon; K64.8 Other hemorrhoids; K57.30 Diverticulosis of large intestine without perforation or abscess without bleeding; Z80.0 Family history of malignant neoplasm of digestive organs; I48.91 Unspecified atrial fibrillation; E11.9 Type 2 diabetes mellitus without complications; I10 Essential (primary) hypertension; E66.9 Obesity, unspecified; Z68.37 Body mass index [BMI] 37.0-37.9, adult; Z79.01 Long term (current) use of anticoagulants; Z79.84 Long term (current) use of oral hypoglycemic drugs
CPT/HCPCS: 45385; 36415; 82948; 85610; 88305; J2704; J7120

== ENCOUNTER 2023-02-02 13:12 | Outpatient (CLI) | payer MEDICARE, SELFPAY ==
--- NOTE | ~2023-02-02 | MM_ITS ---
EXAMINATION: MM screening [facility] BI w anuja HISTORY: Screening mammogram TECHNIQUE: Craniocaudal and mediolateral oblique 3-D tomosynthesis images were obtained and synthetic 2-D images were generated. CAD analysis was submitted and interpreted. COMPARISON: 09/23/2021, 08/06/2020, 07/11/2020 BREAST PARENCHYMAL COMPOSITION: There are scattered areas of fibroglandular density. FINDINGS: No suspicious mass, calcification, or architectural distortion are identified in either sterling ast to suggest malignancy. There has been no suspicious interval change. IMPRESSION: 1. No mammographic evidence of malignancy. 2. Recommend routine screening mammography in one year. BI-RADS Category 1: Negative Reviewed, dictated and finalized at location A.
--- NOTE | ~2023-02-02 | DEXA_ITS ---
Bone Density Report Name: LASHAWN PADILLA Age: 67 Sex: Female Ethnicity: White Date of : 1955 Indication: postmenopausal; screening for osteoporosis; height loss; Referring Provider: RAJ CURRAN Study: Bone densitometry was performed. Exam Date: February 02, 2023 Accession number: [id number] Bone Density: Region BMD T-score Z-score Classification AP Spine(L1-L4) 1.109 0.6 2.4 Normal Femoral Neck (Left) 0.693 -1.4 0.2 Osteopenia Total Hip (Left) 0.927 -0.1 1.2 Normal Femoral Neck (Right) 0.723 -1.1 0.4 Osteopenia Total Hip (Right) 0.946 0.0 1.3 Normal Total Hip Mean 0.936 -0.1 1.3 Normal World Health Organization criteria for BMD impression classify patients as: Normal (T-score at or above -1.0), Osteopenia (T-score between -1.0 and -2.5), or Osteoporosis (T-score at or below -2.5). 10-year Fracture Risk(1): Major Osteoporotic Fracture 7.9% Hip Fracture 0.8% Reported Risk Factors: [place] (), Neck BMD=0.693, BMI=39.5 (1) FRAX(R) Version 3.08. Fracture probability calculated for an untreated patient. Fracture probability may be lower if the patient has received treatment. Clinical Information Provided by Patient: Has used the following medications: Vitamin D Patient maximum height was 67.5 Menopause Age: 47 Drinks caffeinated beverages Onset of menses at age 13 Number of children 2 Impression: The patient has low bone mass, based on the Left Femoral Neck T-score. The patient has an estimated ten-year risk of hip fracture of 0.8% and an estimated ten-year risk of major fracture of 7.9%, based on the WHO FRAX algorithm. Discussion: BONE DENSITY IS LOW AT ONE OR MORE SKELETAL SITES. This patient's lowest T-score is low at one or more skeletal sites. It meets the World Health Organization's (WHO) criteria for ?low bone mass? (T-score between -1.0 and -2.5). The patient's 10-year risk of fracture as calculated by FRAX is less than the threshold where pharmacological therapy is recommended by the National Osteoporosis Foundation (NOF). However, all treatment decisions require clinical judgment and consideration of individual patient factors, including patient preferences, comorbidities, previous drug use, risk factors not captured in the FRAX model (e.g., frailty, falls, vitamin D deficiency, increased bone turnover, interval significant decline in bone density) and possible under or overestimation of fracture risk by FRAX. The patient should follow a healthful lifestyle (good nutrition with adequate calcium and vitamin D, and appropriate weight-bearing exercise). Follow-Up: Consider repeating this study in 2 to 3 years to reassess this patient's status, or sooner if there is some new clinical indication. Reported by: [facility] on 02/02/2023 1:49:00 PM. __
== END 2023-02-02 13:13 | disposition home or self-care (01) ==
PROVIDERS: PCP Family Medicine; Visit Provider Obstetrics & Gynecology
DX: Z12.31 Encounter for screening mammogram for malignant neoplasm of breast (principal); Z78.0 Asymptomatic menopausal state; M85.852 Other specified disorders of bone density and structure, left thigh; M85.851 Other specified disorders of bone density and structure, right thigh
CPT/HCPCS: 77063; 77067; 77080

== ENCOUNTER 2023-02-05 11:59 | Outpatient (RCR) | payer MEDICARE, SELFPAY ==
[2022-11-25 13:55] LABS: INR 2.1; Prothrombin Time 25.3 Seconds (11.1-14.7)
[2022-12-23 11:54] LABS: INR 1.9; Prothrombin Time 22.8 Seconds (11.1-14.7)
[2023-01-29 13:11] LABS: INR 1.4; Prothrombin Time 17.6 Seconds (11.1-14.7)
[2023-02-05 12:35] LABS: INR 1.9; Prothrombin Time 22.9 Seconds (11.1-14.7)
== END 2023-02-23 23:59 | disposition home or self-care (01) ==
LOC: ANHLAB 11:59
PROVIDERS: PCP Family Medicine; Visit Provider Specialist
DX: I48.91 Unspecified atrial fibrillation (principal)
CPT/HCPCS: 36415; 85610

== ENCOUNTER 2023-06-16 11:30 | Outpatient (RCR) | payer MEDICARE, SELFPAY ==
[2023-03-27 10:13] LABS: INR 2.1; Prothrombin Time 25.4 Seconds (11.1-14.7)
[2023-05-01 13:26] LABS: INR 1.8; Prothrombin Time 21.9 Seconds (11.1-14.7)
[2023-05-14 13:24] LABS: INR 2.1; Prothrombin Time 24.9 Seconds (11.1-14.7)
[2023-06-16 12:28] LABS: INR 1.8; Prothrombin Time 21.6 Seconds (11.1-14.7)
== END 2023-06-25 23:59 | disposition home or self-care (01) ==
LOC: ANHLAB 11:30
PROVIDERS: PCP Family Medicine; Visit Provider Internal Medicine Cardiovascular Disease
DX: I48.91 Unspecified atrial fibrillation (principal)
CPT/HCPCS: 36415; 85610

== ENCOUNTER 2023-08-07 10:39 | Outpatient (CLI) | payer MEDICARE, SELFPAY ==
[2023-08-07 11:29] LABS: Basophils Absolute Auto 0.1 K/mm3 (0.0-0.1); Basophils Percent Auto 1.1 % (0.2-1.2); Eosinophils Absolute Auto 0.3 K/mm3 (0-0.3); Eosinophils Percent Auto 4.1 % (0-4.4); Hematocrit 42.3 % (37.0-47.0); Hemoglobin 13.3 g/dL (12.0-15.0); Immature Granulocyte Absolute 0.01 K/mm3 (0.00-0.031); Immature Granulocyte Percent A 0.1 % (0-0.5); Lymphocytes Absolute Auto 1.89 K/mm3 (0.9-3.2); Lymphocytes Percent Auto 25.1 % (18.3-44.2); Mean Corpuscular HGB Conc 31.4 g/dl (32-36); Mean Corpuscular Hemoglobin 30.2 pg (26-34); Mean Corpuscular Volume 96.1 fl (80-100); Mean Platelet Volume 9.8 fl (7.4-10.4); Monocytes Absolute Auto 0.4 K/mm3 (0.1-0.6); Monocytes Percent Auto 5.3 % (2.6-8.5); Neutrophils Absolute Auto 4.8 K/mm3 (1.3-6.7); Neutrophils Percent Auto 64.3 % (45.5-73.1); Platelet Count Result 245 k/mm3 (150-375); Red Cell Distribution Width 13.2 % (11.5-14.5); White Blood Count 7.5 K/mm3 (4.5-10.0)
[2023-08-07 12:19] LABS: Alanine Aminotransferase 15 U/L (6-35); Albumin Level 4.3 g/dL (3.5-5.1); Alkaline Phosphatase 69 U/L (38-126); Anion Gap 7 mmol/L (4-12); Aspartate Amino Transferase 26 U/L (14-36); Bilirubin,Total 0.7 mg/dL (0.2-1.3); Blood Urea Nitrogen 24 mg/dL (7-17); Calcium 9.2 mg/dL (8.4-10.2); Carbon Dioxide 26 mmol/L (22-30); Chloride 106 mmol/L (98-107); Cholesterol 173 mg/dL (0-200); Estimated Glomerular Filt Rate > 60; Glucose 110 mg/dL (65-110); HDL Direct 54 mg/dL; Potassium 4.1 mmol/L (3.4-5.0); Sodium 139 mmol/L (137-145); Triglycerides 76 mg/dL (<150)
[2023-08-07 12:30] LABS: LDL Cholesterol Direct 94 mg/dL
[2023-08-07 13:08] LABS: Hemoglobin A1C 6.1 % (<5.7)
[2023-08-07 15:26] LABS: Creatinine Urine 204.6 mg/dL
[2023-08-07 15:30] LABS: MALB Creatinine Ratio 11.8 mg/g (0-30); Microalbumin Urine Random 24.2 mg/L (0-16.7)
== END 2023-08-07 10:40 | disposition home or self-care (01) ==
PROVIDERS: PCP Emergency Medicine; Visit Provider Emergency Medicine
DX: I48.91 Unspecified atrial fibrillation (principal); E66.9 Obesity, unspecified; E11.40 Type 2 diabetes mellitus with diabetic neuropathy, unspecified
CPT/HCPCS: 36415; 80053; 80061; 82043; 83036; 84443; 85025; 85610

== ENCOUNTER 2023-08-17 08:23 | Outpatient (CLI) | payer MEDICARE, SELFPAY ==
--- NOTE | ~2023-08-17 | MR_ITS ---
MRI of the brain Clinical History: Personal history of TIA Technique: Axial and sagittal T1-weighted images were acquired. These were followed by axial T2-weigh molina, diffusion weighted, gradient, and FLAIR images. Following intravenous administration of 20 cc Mu ltiHance gadolinium, T1-weighted fat-sat imaging was performed in the axial and coronal planes. Findings: No abnormal signal seen in the brain parenchyma. No acute infarct, intracranial hemorrhage or mass lesion. Ventricles and subarachnoid spaces are unremarkable. Orbits are unremarkable. There is minimal right maxillary sinus disease. Remaining paranasal sinuses and mastoid air cells are clear. Major intracran ial flow voids are intact. Sagittal midline structures are intact. No abnormal postcontrast enhancement identified. IMPRESSION: No intracranial abnormality. Mild right maxillary sinus disease. Reviewed, dictated and finalized at [facility].
== END 2023-08-17 08:24 | disposition home or self-care (01) ==
PROVIDERS: PCP Emergency Medicine; Visit Provider Emergency Medicine
DX: I48.91 Unspecified atrial fibrillation (principal); Z86.73 Personal history of transient ischemic attack (TIA), and cerebral infarction without residual deficits
CPT/HCPCS: 70553; A9577

== ENCOUNTER 2023-09-23 11:18 | Outpatient (RCR) | payer MEDICARE, SELFPAY ==
[2023-07-25 10:19] LABS: INR 1.9; Prothrombin Time 23.6 Seconds (11.1-14.7)
[2023-08-07 11:47] LABS: INR 1.9; Prothrombin Time 22.8 Seconds (11.1-14.7)
[2023-08-21 12:01] LABS: Prothrombin Time 24.4 Seconds (11.1-14.7)
[2023-09-23 12:09] LABS: INR 2.2
== END 2023-10-23 23:59 | disposition home or self-care (01) ==
LOC: ANHLAB 11:18
PROVIDERS: PCP Emergency Medicine; Visit Provider Specialist
DX: I48.91 Unspecified atrial fibrillation (principal)
CPT/HCPCS: 36415; 85610

== ENCOUNTER 2023-11-14 07:35 | Outpatient (CLI) | payer MEDICARE, SELFPAY ==
[2023-11-14 08:24] LABS: Alanine Aminotransferase 18 U/L (6-35); Albumin Level 4.3 g/dL (3.5-5.1); Alkaline Phosphatase 66 U/L (38-126); Anion Gap 11 mmol/L (4-12); Aspartate Amino Transferase 29 U/L (14-36); Bilirubin,Total 0.6 mg/dL (0.2-1.3); Blood Urea Nitrogen 22 mg/dL (7-17); Carbon Dioxide 24 mmol/L (22-30); Chloride 107 mmol/L (98-107); Estimated Glomerular Filt Rate > 60; Glucose 125 mg/dL (65-110); Sodium 142 mmol/L (137-145)
[2023-11-14 08:30] LABS: Digoxin 0.7 ng/mL (0.8-2.0)
[2023-11-14 09:55] LABS: Hemoglobin A1C 6.3 % (<5.7)
== END 2023-11-14 07:36 | disposition home or self-care (01) ==
LOC: ANHLAB 07:37
PROVIDERS: PCP Emergency Medicine; Visit Provider Emergency Medicine
DX: I48.91 Unspecified atrial fibrillation (principal); E08.40 Diabetes mellitus due to underlying condition with diabetic neuropathy, unspecified; Z79.899 Other long term (current) drug therapy
CPT/HCPCS: 36415; 80053; 80162; 82607; 83036

== ENCOUNTER 2024-01-25 10:18 | Outpatient (RCR) | payer MEDICARE, SELFPAY ==
[2023-10-29 11:42] LABS: INR 2.5; Prothrombin Time 27.2 Seconds (11.1-14.7)
[2023-12-15 17:47] LABS: INR 2.4; Prothrombin Time 26.8 Seconds (11.1-14.7)
[2024-01-25 10:54] LABS: INR 2.5; Prothrombin Time 27.2 Seconds (11.1-14.7)
== END 2024-01-27 23:59 | disposition home or self-care (01) ==
LOC: ANHLAB 10:18
PROVIDERS: PCP Emergency Medicine; Visit Provider Specialist
DX: I48.91 Unspecified atrial fibrillation (principal)
CPT/HCPCS: 36415; 85610

== ENCOUNTER 2024-02-17 10:10 | Outpatient (CLI) | payer MEDICARE, SELFPAY ==
--- NOTE | ~2024-02-17 | MM_ITS ---
EXAMINATION: MM screening [facility] BI w anuja HISTORY: Screening TECHNIQUE: Craniocaudal and mediolateral oblique 3-D tomosynthesis images were obtained and synthetic 2-D images were generated. CAD analysis was submitted and interpreted. COMPARISON: Comparison to multiple prior studies sequentially, with oldest reviewed study dated 01/2018. BREAST PARENCHYMAL COMPOSITION: Not dense: There are scattered areas of fibroglandular density. FINDINGS: There is no evidence of suspicious mass, calcification, or architectural distortion to sugg est malignancy in either breast. There has been no suspicious interval change. IMPRESSION: 1. No mammographic evidence of malignancy. 2. Recommend routine screening mammography in one year. BI-RADS Category 1: Negative Reviewed, dictated and finalized at location B.
== END 2024-02-17 10:11 | disposition home or self-care (01) ==
LOC: ANHIMG 10:12
PROVIDERS: PCP Family Medicine; Visit Provider Obstetrics & Gynecology
DX: Z12.31 Encounter for screening mammogram for malignant neoplasm of breast (principal)
CPT/HCPCS: 77063; 77067

== ENCOUNTER 2024-04-29 12:07 | Outpatient (RCR) | payer MEDICARE, SELFPAY ==
[2024-02-29 12:14] LABS: INR 2.9; Prothrombin Time 30.8 Seconds (11.1-14.7)
[2024-03-28 14:12] LABS: INR 2.7; Prothrombin Time 29.2 Seconds (11.1-14.7)
[2024-04-29 12:33] LABS: INR 2.5; Prothrombin Time 27.5 Seconds (11.1-14.7)
== END 2024-05-29 23:59 | disposition home or self-care (01) ==
LOC: ANHLAB 12:07
PROVIDERS: PCP Family Medicine; Visit Provider Specialist
DX: I48.91 Unspecified atrial fibrillation (principal)
CPT/HCPCS: 36415; 85610

== ENCOUNTER 2024-05-16 08:07 | Outpatient (CLI) | payer MEDICARE, SELFPAY ==
[2024-05-16 09:01] LABS: Hematocrit 40.4 % (37.0-47.0); Hemoglobin 13.1 g/dL (12.0-15.0); Mean Corpuscular HGB Conc 32.4 g/dl (32-36); Mean Corpuscular Hemoglobin 30.8 pg (26-34); Mean Corpuscular Volume 95.1 fl (80-100); Mean Platelet Volume 9.5 fl (7.4-10.4); Platelet Count Result 221 k/mm3 (150-375); Red Blood Count 4.25 M/mm3 (4.2-5.4); Red Cell Distribution Width 13.6 % (11.5-14.5); White Blood Count 6.3 K/mm3 (4.5-10.0)
[2024-05-16 09:14] LABS: Hemoglobin A1C 6.6 % (<5.7)
[2024-05-16 09:16] LABS: Alanine Aminotransferase 15 U/L (6-35); Alkaline Phosphatase 66 U/L (38-126); Anion Gap 5 mmol/L (4-12); Aspartate Amino Transferase 24 U/L (14-36); Bilirubin,Total 0.5 mg/dL (0.2-1.3); Blood Urea Nitrogen 20 mg/dL (7-17); Calcium 8.7 mg/dL (8.4-10.2); Carbon Dioxide 30 mmol/L (22-30); Chloride 104 mmol/L (98-107); Cholesterol 206 mg/dL (0-200); Estimated Glomerular Filt Rate > 60; Glucose 120 mg/dL (65-110); HDL Direct 52 mg/dL; Potassium 4.1 mmol/L (3.4-5.0); Sodium 139 mmol/L (137-145); Triglycerides 107 mg/dL (<150)
[2024-05-16 09:27] LABS: LDL Cholesterol Direct 113 mg/dL
== END 2024-05-16 08:08 | disposition home or self-care (01) ==
PROVIDERS: PCP Family Medicine; Visit Provider Family Medicine
DX: E66.9 Obesity, unspecified (principal); E08.40 Diabetes mellitus due to underlying condition with diabetic neuropathy, unspecified; I10 Essential (primary) hypertension; Z79.899 Other long term (current) drug therapy
CPT/HCPCS: 36415; 80053; 80061; 83036; 84443; 85027

== ENCOUNTER 2024-08-30 07:15 | Outpatient (CLI) | payer MEDICARE, SELFPAY ==
--- OUTSIDE RECORDS SUMMARY | 2024-08-30 07:18 | XMS_ITS | Encounter Summary ---
Author Organization [facility] Healthcare Address [address] [place] [address] Care Team Providers Care Ophthalmic Asst Name Role Phone Kady Street MD Primary Care Provider + Encounter Details Date Type Department Care Team (Late st Contact Info) Description 08/07/2023 Orders Only [facility] [place] Information Management [address] [place] [id number] Scanning, Provider Social History Tobacco Use Types Packs/Day Years Used Date Smoking Tobacco: Never Smokeless Tobacco: Never Alcohol Use Standard Drinks/Week Comments No 0 (1 standard drink = 0.6 oz pur e alcohol) Comments Unknown Sex and Gender Information Value Date Recorded Sex Assigned at Not on file Legal Sex Female 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
--- OUTSIDE RECORDS SUMMARY | 2024-08-30 07:18 | XMS_ITS | Referral Summary ---
Author Organization [facility] [address] Address [address] [place] [phone] Care Team Providers Care Certified Nurse Name Role Phone Kady Street MD Primary Care Provider + Encounters Date Type Department Care Team Description 08/16/2024 Anticoagulation Visit [facility] Medical [facility] Cardiology [address] [place] [address] [address] [place] [address] Aryan Calle RN Atrial fibrillation ([facility]/HCC) [I48.91] (Primary Dx) 08/15/2024 Telephone [facility] Cardiology [address] [place] [address] [address] [place] [address] Malik Valencia MD 07/01/2024 Anticoagulation Visit [facility] Cardiology [address] [place] [address] [address] [place] [address] Aryan Calle RN Atrial fibrillation ([facility]/HCC) [I48.91] (Primary Dx) 06/16/2024 11:15 AM INFORMATION SYSTEMS PLANNER Office Visit [facility] Medical Group Cardiology at [address] [place] [address] Malik Valencia MD Permanent atrial fibrillation (HCC) (Primary Dx) from Last 3 Months Allergies No known active allergies Medications glipiZIDE XL (GLUCOTROL XL) 5 mg 24 hr tablet take 1 tablet by oral route every day with breakfast 0 0 013 Active metFORMIN (GLUCOPHAGE) 500 mg tablet take 1 Tablet (500MG) by oral route every day every morning 0 013 Active lisinopriL (PRINIVIL,ZEST RIL) 2.5 mg tablet TK 1 T PO QD 020 Active blood glucose diagnostic (OneTouch Verio test strips) strip OneTouch Verio test strips USE TO TEST EVERY DAY Active ergocalciferol (VITAMIN D) 50,000 unit capsule ergocalciferol (vitamin D2) 1,250 mcg (50,000 unit) capsule TAKE 1 CAPSULE BY MOUTH EVERY WEEK Active fluticasone propionate (FLONASE) 50 mcg/actuation nasal spray once as needed Act jovan gabapentin (NEURONTIN) 800 mg tablet Take 1 tablet (800 mg total) by mouth 3 (three) times a day 021 Active nitrofurantoin monohydrate (MACROBID) 100 mg capsule TAKE 1 CAPSULE BY MOUTH EVERY 12 HOURS FOR 7 DAYS 021 Active Ozempic 0.25 mg or 0.5 mg (2 mg/3 mL) pen injector injection INJECT 0.5 MG UNDER THE SKIN EVERY WEEK 023 Active simvastatin (ZOCOR) 5 mg tablet Take 1 tablet (5 mg total) by mouth daily 025 Active digoxin (LANOXIN) 125 mcg (0.125 mg) tablet TAKE 1 TABLET BY MOUTH DAILY 90 tablet 025 Active warfarin (COUMADIN) 5 mg tablet TAKE 1 TABLET BY MOUTH DAILY ALONG WITH 1MG 30 tablet 025 Active warfarin (COUMADIN) 1 mg tablet TAKE 1 TABLET BY MOUTH EVERY DAY WITH 5 MG TABLET 30 tablet 025 Active warfarin (COUMADIN) 5 mg tablet TAKE 1 TABLET BY MOUTH DAILY ALONG WITH 1MG 30 tablet 1 025 2024 Discontinued warfarin (COUMADIN) 1 mg tablet TAKE 1 TABLET BY MOUTH EVERY DAY WITH 5 MG TABLET 30 tablet 025 2024 Discontinued Active Problems Problem Noted Date Diagnosed Date Atrial fibrillation (CMS/HCC) [I48.91] 7 Social History Tobacco Use Types Packs/Day Years Used Date Smoking Tobacco: Never Smokeless Tobacco: Never Tobacco Cessation:Counseling Given: Not Answered Alcohol Use Standard Drinks/Week Comments No 0 (1 standard drink = 0.6 oz pur e alcohol) Comments Unknown Sex and Gender Information Value Date Recorded Sex Assigned at Not on file Legal Sex Female 1:58 AM INFORMATION SYSTEMS PLANNER Gender Identity Not on file Sexual Orientation Not on file Last Filed Vital Signs Vital Sign Reading Time Taken Comments Blood Pressure 126/78 06/16/2024 10:59 AM INFORMATION SYSTEMS PLANNER Pulse 101 06/16/2024 10:59 AM INFORMATION SYSTEMS PLANNER Temperature - - Respiratory Rate 16 01/15/2017 2:32 PM CDT Oxygen Saturation 97% 06/16/2024 10:59 AM INFORMATION SYSTEMS PLANNER Inhaled Oxygen Concentration - - Weight 93.4 kg (206 lb) 06/16/2024 10:59 AM INFORMATION SYSTEMS PLANNER Height 167.6 cm (5' 6 ) 06/16/2024 10:59 AM INFORMATION SYSTEMS PLANNER Body Mass Index 33.25 06/16/2024 10:59 AM INFORMATION SYSTEMS PLANNER Plan of Treatment Not on file Procedures Procedure Name Priority Date/Time Associated Diagnosis Comments PROTIME-INR Routine 08/15/2024 PROTIME-INR Routine 07/01/2024 from Last 3 Months Results * (ABNORMAL) Protime-INR (08/15/2024) INR 2.10(A) 0.90 - 1.10 EXTERNAL LAB Blood 08/15/2024 Historical Provider MD LAB BLOOD ORDERABLES Claire l Result EXTERNAL LAB * (ABNORMAL) Protime-INR (07/01/2024) INR 2.30(A) 0.90 - 1.10 EXTERNAL LAB Blood Historical Provider MD LAB BLOOD ORDERABLES Claire l Result EXTERNAL LAB from Last 3 Months [facility] Address: [facility] [address] [place] [address] [facility] Address: [facility] [address] [place] [address] Care Teams Certified Nurse Relationship Specialty Start Date End Date Kady Street MD PCP - General Family Medicine 01/15/17
--- OUTSIDE RECORDS SUMMARY | 2024-08-30 07:18 | XMS_ITS | Clinical Summary ---
Author Organization [facility] Address [address] [place] [address] Care Team Providers Care Textile Conservator Name Role Phone Unavailable Primary Care Provider Unavailabl e Immunizations Immunization Administration Dates Next Due Covid-19, Mrna, Lnp-s, Pf, 30 Mcg/0.3 Ml Dose (P fizer) 02/12/2021 Social History Tobacco Use Types Packs/Day Years Used Date Smoking Tobacco: Never Assessed Comments Unknown Sex and Gender Information Value Date Recorded Sex Assigned at Not on file Legal Sex Female 10:23 AM CDT Gender Identity Not on file Sexual Orientation Not on file Plan of Treatment Health Maintenance Due Date Last Done Comments Hepatitis C Virus (HCV) Screening 1955 TdaP Immunization 1955 Colonoscopy 2001 Colorectal Cancer Screening 2001 Cologuard 2006 Immunochemical Fecal Occult Blood 2006 Pneumococcal Immunization (5 0+ years) (1 of 1 - PCV) 2006 Zoster Immunization (1 of 2) 2006 Influenza Immunization (#1) 01/03/202402/01, 09/05/2019 SARS-COV-2 Immunization ( season) 2024 02/12/2021, 07/03/2020 Respiratory Syncytial Virus (RSV) Immunization (Adult) (1 - 1-dose 75+ series) 12/21/2031 Hepatitis B Immunization Aged Out No longer eligible based on patient's age to complete this topic Meningococcal Immunization (ACWY) Aged Out No longer eligible b ased on patient's age to complete this topic Rotavirus Immunization Aged Out No lo nger eligible based on patient's age to complete this topic
--- OUTSIDE RECORDS SUMMARY | 2024-08-30 07:18 | XMS_ITS | Encounter Summary ---
Author Organization [facility] Healthcare Address [address] [place] [address] Care Team Providers Care Chalk Cutter Name Role Phone Kady Street MD Primary Care Provider + Encounter Details Date Type Department Care Team (Late st Contact Info) Description 08/21/2023 Orders Only [facility] Health Information Management [address] [place] [phone] Scanning, Provider Social History Tobacco Use Types Packs/Day Years Used Date Smoking Tobacco: Never Smokeless Tobacco: Never Alcohol Use Standard Drinks/Week Comments No 0 (1 standard drink = 0.6 oz pur e alcohol) Comments Unknown Sex and Gender Information Value Date Recorded Sex Assigned at Not on file 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
--- OUTSIDE RECORDS SUMMARY | 2024-08-30 07:18 | XMS_ITS | Encounter Summary ---
Author Organization [facility] Healthcare Address [address] [place] [address] Care Team Providers Care Manager Care Name Role Phone Kady Street MD Primary Care Provider + Encounter Details Date Type Department Care Team (Late st Contact Info) Description 10/29/2023 Orders Only [facility] Health Information Management [address] [place] [phone] Scanning, Provider Social History Tobacco Use Types Packs/Day Years Used Date Smoking Tobacco: Never Smokeless Tobacco: Never Alcohol Use Standard Drinks/Week Comments No 0 (1 standard drink = 0.6 oz pur e alcohol) Comments Unknown Sex and Gender Information Value Date Recorded Sex Assigned at Not on file Legal 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
--- OUTSIDE RECORDS SUMMARY | 2024-08-30 07:18 | XMS_ITS | Clinical Summary ---
Author Organization [facility] [address] Address [address] [place] [address] Care Team Providers Care Tool Adjuster Name Role Phone Kady Street MD Primary Care Provider + Allergies No known active allergies Medications glipiZIDE [...] by mouth 3 (three) times a day Active nitrofurantoin monohydrate (MACROBID) 100 mg capsule TAKE 1 CAPSULE BY MOUTH EVERY 12 HOURS FOR 7 DAYS Active Ozempic 0.25 mg or 0.5 mg [...] Diagnosed Date Atrial fibrillation (CMS/HCC) [I48.91] 7 Encounters Date Type Department Care Team Description 08/16/2024 Anticoagulation Visit [facility] Medical Group Cardiology [address] [place] [address] [place] [phone] Aryan Calle RN Atrial fibrillation (CMS/HCC) [I48.91] (Primary Dx) 08/15/2024 Telephone [facility] Medical [facility] Cardiology [address] [place] [address] [place] [phone] Malik Valencia MD 07/01/2024 Anticoagulation Visit [facility] Cardiology [address] [place] [address] [place] [phone] Aryan Calle RN Atrial fibrillation (CMS/HCC) [I48.91] (Primary Dx) 06/16/2024 11:15 AM LOOPER OPERATOR Office Visit [facility] Medical Group Cardiology at [address] [place] [address] Malik Valencia MD Permanent atrial fibrillation (HCC) (Primary Dx) from Last 3 Months Medical History Medical History Date Comments Hx Other Medical Diabetes Type I I Social History Tobacco Use Types Packs/Day Years Used Date Smoking Tobacco: Never Smokeless Tobacco: Never Tobacco Cessation:Counseling Given: Not Answered Alcohol Use Standard Drinks/Week Comments No 0 (1 standard drink = 0.6 oz pur e alcohol) Comments Unknown Sex and Gender Information Value Date Recorded Sex Assigned at Not on file Legal Sex Female 1:58 AM LOOPER OPERATOR Gender Identity Not on file Sexual Orientation Not on file Obstetrics History Last Filed Vital Signs Vital Sign Reading Time Taken Comments Blood Pressure 126/78 06/16/2024 10:59 AM LOOPER OPERATOR Pulse 101 06/16/2024 10:59 AM LOOPER OPERATOR Temperature - - Respiratory Rate 16 01/15/2017 2:32 PM CDT Oxygen Saturation 97% 06/16/2024 10:59 AM LOOPER OPERATOR Inhaled Oxygen Concentration - - Weight 93.4 kg (206 lb) 06/16/2024 10:59 AM LOOPER OPERATOR Height 167.6 cm (5' 6 ) 06/16/2024 10:59 AM LOOPER OPERATOR Body Mass Index 33.25 06/16/2024 10:59 AM LOOPER OPERATOR Plan of Treatment Health Maintenance Due Date Last Done Comments Breast Cancer Screening-Mammogram 1955 Colon Cancer Screening-Colonoscopy 1955 Depression Screening 1955 Fall Risk Assessment 1955 Hepatitis C Screening 1955 Osteoporosis Screening-Bone Density Scan 1955 DTaP/Tdap/Td Vaccine (1 - Tdap) 12/21/1967 Hepatitis B Screening 1974 Pneumococcal vaccine 65+ (1 of 1 - PCV) 2006 Zoster Vaccine (1 of 2) 2006 Well Visit 65+ 2021 Covid-19 Vaccine (2 - season) 01/03/202404/2021 Influenza Vaccine (Season Ended) 2025 02/20/20 20, 09/05/2019 Procedures Procedure Name Priority Date/Time Associated Diagnosis [...] EXTERNAL LAB from Last 3 Months Insurance [facility] [employer] [facility] HMO REF Care Teams Tool Adjuster Relationship Specialty Start Date End Date Kady Street MD PCP - General Family Medicine 01/15/17
--- OUTSIDE RECORDS SUMMARY | 2024-08-30 07:19 | XMS_ITS | Data Portability ---
Author Organization [facility] [place], Main Office Address [address] [place] [address] Assessment No assessment recorded. Plan of Treatment Reminders Order Date Submit Date Provider Last Modified By Organization Details Last Modified Time Details Appointments None recorded. Lab vitamin D, 25-hydroxy, total, serum 2022 023 [email or web address] [facility] (Lab), [address] [place], [address], 08:53:21 uric acid, serum or plasma 2022 023 [facility] (Lab), [address] [place], [address], 3 08:49:11 CBC [address] (Lab), [address] [place], [address], 3 08:50:03 CMP, serum or plasma 2022 023 [email or web address] [facility] (Lab), [address] [place], [address], 3 08:50:32 HbA1c (hemoglobin A1c), blood [address] (Lab), [address] [place], [address], 3 08:51:31 lipid panel, serum [address] ([facility]), [address], [place], [address], 3 08:52:20 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 Thank you 2022 023 [email or web address] Daryl Jones MD, [address] [facility] [address], [address], [place], [address], 3 10:43:04 Procedures None recorded. Surgeries None recorded. Imaging XR, foot, 3 or more view 2022 023 [facility], [address], [address], [place], [address], 3 15:37:30 XR, toe(s), 2 or more view [address], [address], [address], [place], [address], 3 09:07:59 MAMMO, screening, digital, bilateral [address], [address] [place] [address] [address], [place], [address], 3 11:04:16 DEXA [address], [facility] [address], [place], [address], 3 11:04:55 Medication Orders Ozempic 0.25 mg or 0.5 mg (2 mg/3 mL) subcutaneou s pen injector 2022 023 [id number], [address], [place], [place], [id number], 4 15:40:56 meloxicam 7.5 mg tablet 2022 023 [id number], [address] , [place], [place], [id number], 3 08:16:59 cephalexin 500 mg capsule 2022 023 [id number], [address], [place], [place], [id number], 3 08:16:58 Patient TargetsNo targets recorded. Patient Instructions Encounter Date Encounter Id Patient Instructions Last Modified By Organization Details Last Modified Time 09/01/2022 [id number] dementia rating scale-2* SAVANNAH Not available 09/01/2022 13:21:02 multi-dimensiona l health assessment questionnaire* SAVANNAH Not available 09/01/2022 13:21:35 advance directiv es: care instructions Not available 09/01/2022 12:40:01 [place] Advance Directives [email or web address] Not available 09/01/2022 12:40:01 advance care planning: care instructions Not available 09/01/2022 12:40:01 care plan* SAVANNAH Not available 09/01 14:08:08 Personalized [facility] Plan and Screening Recommendations Advance Directives - Do you have one? Advance Directives - Do we have your advance directive on file in your health record? Primary Prevention/Interven tion (prevents or decreases the chance of common diseases from occurring) Smoking Risk: Alcohol Misuse Screening: Weight: Physical activity: Nutrition: Fall Risk (screened today): Vaccines Pneumococcal: Ordered Influenza: Your next one in the fall of this year Chronic Disease Risks Stroke: I have no recommendations Act mimi diagnosis, Continue current treatment plan Heart Attack: I have no recommendations Act mimi diagnosis, Continue current treatment plan Clogging of the Arteries: I have no recommendations Act mimi diagnosis, Continue current treatment plan Diabetes: Active diagnosis, Continue current treatment plan Secondary Prevention/Interven tion (detects treatable diseases before they may cause symptoms, disability, or ) Breast Cancer Screening with mammogram: Your next mammogram: Ordered Cervical/Uterine/Ov ayana Cancer Screening: Osteoporosis Screening: Your next DEXA in: Ordered Date Screening Last Performed: Colon Cancer Screening: Colonoscopy In: Ordered Date Screening Last Performed: Eye Disease Screening: Dementia Risk: Depression Screening: Active diagnosis, Continue current treatment plan Not available 09/01/2022 12:41:36 Reason for Referral Data Operations Director Referral for Screening for malignant neoplasm of colon Please call the pt to make an appt. Thank you Referring Physician: Kady Street, Family Medicine, Encounter Date: 09/01/2022 Poising Inspector Referral for Pain of toe of left foot Referring Physician: Jose Ernst [facility] Medicine, Encounter Date: 12/26/2022 Results Created Date Observation Date Name Description Value Unit Range Abnormal Flag Note LastModifiedBy Organization Detail LastModifiedTime 04/29/20 22 04/29/2022 CULTU RE URINE urc ===== ===== ===== ===== ===== ===== ===== ===== ===== ===== ===== ===== ===== ===== ===== ===== ===== ===== ===== ===== ===== ===== ===== ===== CULTU RE NO.: [id number] Exam Statu s: Final Exam Type: CULTU RE URINE ===== ===== ===== ===== ===== ===== ===== ===== ===== ===== ===== ===== ===== ===== ===== ===== ===== ===== ===== ===== ===== ===== ===== ===== Cultu re Repor t: Organ ism #01 Esche carlos a coli (escc ol) Antib iotic s escco l Achie vable Achie vable (01) Dosag e Serum Level Urine Level mcg/m l mcg/m l Vanna edie <=2 S 021A Ampic illin <=2 S 021A Ampic illin /Sulb actam <=2 S 021A Cefaz ankit <=4 S 021A Cefep yoshi <=1 S 021A Cefox itin <=4 S 021A Ceftr iaxon e <=1 S 021A Cipro floxa edie <=0.2 5 S 021A ESBL NEG - 021A Genta micin <=1 S 021A Levof loxac in <=0.1 2 S 021A Merop enem <=0.2 5 S 021A Piper acill in./T azaba <=4 S 021A Tobra mycin <=1 S 021A Trmet hopri m.Sul fa <=20 S 021A rt - Test Card Code AST-G N 021A o2 - Final Organ ism ESCHE R 021A af - Antib iotic Fami TRIME T 021A af - Antib iotic Famil y Na ap - Pheno type Name WILD 021A ap - Pheno type Name Nitro furan toin <=16 S 021A Not Available [facility] (Lab) [address] [place], [address], 05/01/2022 08:23:37 05/28/19 23 05/28/2022 urina lysis , dipst ick Leukocytes (reference range: negative mando/ l) Trace Not Available _[address] [place], [address], 04/29/2022 12:24:27 05/28/19 23 05/28/2022 urina lysis , dipst ick Nitrite (reference rage: negative mg/dl) negati ve Not Available _[facility]_[address] [place], [address], 04/29/2022 12:24:27 05/28/19 23 05/28/2022 urina lysis , dipst ick Urobilinogen (reference range: 0.2-1 mg/dl) 1 Not Available [address] , [place], [address], 04/29/2022 12:24:27 05/28/19 23 05/28/2022 urina lysis , dipst ick Protein (reference range: negative mg/dl) Negati ve Not Available [address] , [place], [address], 04/29/2022 12:24:27 05/28/19 23 05/28/2022 urina lysis , dipst ick pH (reference range: 5-7) 5.5 Not Available [address] , [place], [address], 04/29/2022 12:24:27 05/28/19 23 05/28/2022 urina lysis , dipst ick Blood (reference range: negative Fran/ l) Modera te Not Available [place] [address], [place], [address], 04/29/2022 12:24:27 05/28/19 23 05/28/2022 urina lysis , dipst ick Specific Aylett (reference range: 1.005-1.030) 1.030 Not Available [address] , [place], [address], 04/29/2022 12:24:27 05/28/19 23 05/28/2022 urina lysis , dipst ick Ketone (reference range: negative mg/dl) Negati ve Not Available [address] , [place], [address], 04/29/2022 12:24:27 05/28/19 23 05/28/2022 urina lysis , dipst ick Bilirubin (reference range: negative mg/dl) Negati ve Not Available [address] , [place], [address], 04/29/2022 12:24:27 05/28/19 23 05/28/2022 urina lysis , dipst ick Glucose (reference range: negative mg/dl) Negati ve Not Available [address] , [place], [address], 04/29/2022 12:24:27 05/28/19 23 05/28/2022 urina lysis , dipst ick Appearance Clear Not Available [address] , [place], [address], 04/29/2022 12:24:27 05/28/19 23 05/28/2022 urina lysis , dipst ick Color Yellow Not Available [address] , [place], [address], 04/29/2022 12:24:27 12/27/19 23 12/26/2022 CBC/C OMPLE TE BLD COUNT W/DIF F white blood cells 6.5 x10'3 /uL 4.2-10 .8 Not Available [facility] (Lab) [address] [place], [address], 12/26/2022 19:06:48 12/27/19 23 12/26/2022 CBC/C OMPLE TE BLD COUNT W/DIF F red blood cells 4.27 x10'6 /uL 3.80-5 .20 Not Available [facility] (Lab) [address] [place], [address], 12/26/2022 19:06:48 12/27/19 23 12/26/2022 CBC/C OMPLE TE BLD COUNT W/DIF F hemoglobin 13.4 g/dL 12.0-1 5.6 Not Available [facility] (Lab) [address] [place], [address], 12/26/2022 19:06:48 12/27/19 23 12/26/2022 CBC/C OMPLE TE BLD COUNT W/DIF F hematocrit 41.0 % 35.7-4 5.7 Not Available [facility] (Lab) [address] [place], [address], 12/26/2022 19:06:48 12/27/19 23 12/26/2022 CBC/C OMPLE TE BLD COUNT W/DIF F mean red cell volume 96.0 fL 82.0-9 9.0 Not Available [facility] (Lab) [address] [place], [address], 12/26/2022 19:06:48 12/27/19 23 12/26/2022 CBC/C OMPLE TE BLD COUNT W/DIF F mean red cell hemoglobin 31.4 pg 27.0-3 3.0 Not Available [facility] (Lab) [address] [place], [address], 12/26/2022 19:06:48 12/27/19 23 12/26/2022 CBC/C OMPLE TE BLD COUNT W/DIF F mean RBC HGB concentratio n 32.7 g/dL 31.0-3 6.0 Not Available [facility] (Lab) [address] [place], [address], 12/26/2022 19:06:48 12/27/19 23 12/26/2022 CBC/C OMPLE TE BLD COUNT W/DIF F red cell distribution width 13.9 % 11.8-1 5.5 Not Available [facility] (Lab) [address] [facility] [place], [address], 12/26/2022 19:06:48 12/27/19 23 12/26/2022 CBC/C OMPLE TE BLD COUNT W/DIF F platelets 256 x10'3 /uL 150-40 0 Not Available [facility] (Lab) [address] [place], [address], 12/26/2022 19:06:48 12/27/19 23 12/26/2022 CBC/C OMPLE TE BLD COUNT W/DIF F mean platelet volume 10.4 fL 9.0-12 .4 Not Available [facility] (Lab) [address] [place], [address], 12/26/2022 19:06:48 12/27/19 23 12/26/2022 CBC/C OMPLE TE BLD COUNT W/DIF F neutrophils 55.2 % 39.0-7 2.0 Not Available [facility] (Lab) [address] [place], [address], 12/26/2022 19:06:48 12/27/19 23 12/26/2022 CBC/C OMPLE TE BLD COUNT W/DIF F lymphocytes 28.1 % 16.0-4 7.0 Not Available [facility] (Lab) [address] [place], [address], 12/26/2022 19:06:48 12/27/19 23 12/26/2022 CBC/C OMPLE TE BLD COUNT W/DIF F monocytes 7.2 % 5.0-12 .0 Not Available [facility] (Lab) [address] [place], [address], 12/26/2022 19:06:48 12/27/19 23 12/26/2022 CBC/C OMPLE TE BLD COUNT W/DIF F eosinophils 7.8 % 1.0-7. 0 high Not Available [facility] (Lab) [address] [place], [address], 12/26/2022 19:06:48 12/27/1912/26/2022 CBC/C OMPLE TE BLD COUNT W/DIF F basophils 1.4 % 0.0-2. 0 Not Available [facility] (Lab) [address] [facility] [place], [address], 12/26/2022 19:06:48 12/27/19 23 12/26/2022 CBC/C OMPLE TE BLD COUNT W/DIF F immature granulocytes 0.3 % 0.00-0 .50 Not Available [facility] (Lab) [address] [facility] [place], [address], 12/26/2022 19:06:48 12/27/19 23 12/26/2022 CBC/C OMPLE TE BLD COUNT W/DIF F neutrophils, absolute count 3.60 x10'3 /uL 1.5-8. 0 Not Available [facility] (Lab) [address] [place], [address], 12/26/2022 19:06:48 12/27/19 23 12/26/2022 CBC/C OMPLE TE BLD COUNT W/DIF F lymphocytes, absolute count 1.83 x10'3 /uL 1.07-3 .43 Not Available [facility] (Lab) [address] [place], [address], 12/26/2022 19:06:48 12/27/19 23 12/26/2022 CBC/C OMPLE TE BLD COUNT W/DIF F monocytes, absolute count 0.47 x10'3 /uL 0.29-0 .99 Not Available [facility] (Lab) [address] [place], [address], 12/26/2022 19:06:48 12/27/19 23 12/26/2022 CBC/C OMPLE TE BLD COUNT W/DIF F eosinophils, absolute count 0.51 x10'3 /uL 0.02-0 .53 Not Available [facility] (Lab) [address] [place], [address], 12/26/2022 19:06:48 12/27/19 23 12/26/2022 CBC/C OMPLE TE BLD COUNT W/DIF F basophils, absolute count 0.09 x10'3 /uL 0.01-0 .08 high Not Available [facility] (Lab) [address] [place], [address], 12/26/2022 19:06:48 12/27/19 23 12/26/2022 CBC/C OMPLE TE BLD COUNT W/DIF F immature granulocytes ,absolute 0.02 x10'3 /uL 0.00-0 .05 Not Available [facility] (Lab) [address] [place], [address], 12/26/2022 19:06:48 12/27/19 23 12/26/2022 CBC/C OMPLE TE BLD COUNT W/DIF F nucleated red blood cells 0.0 % -0 Not Available [facility] (Lab) [address] [place], [address], 12/26/2022 19:06:48 12/27/19 23 12/26/2022 CBC/C OMPLE TE BLD COUNT W/DIF F NRBC# 0.00 x10'3 /uL Not Available [facility] (Lab) [address] [place], [address], 12/26/2022 19:06:48 12/27/19 23 12/26/2022 URIC ACID SERUM uric acid 5.6 mg/dL 2.5-6. 2 Not Available [facility] (Lab) [address] [place], [address], 12/26/2022 21:38:05 12/27/1912/26/2022 COMPR EHENS MIMI METAB OLIC PANEL sodium 137 mmol/ L 137-14 5 Not Available [facility] (Lab) [address] [place], [address], 12/26/2022 21:38:09 12/27/19 23 12/26/2022 COMPR EHENS MIMI METAB OLIC PANEL potassium 4.7 mmol/ L 3.5-5. 1 Not Available [facility] (Lab) [address] [place], [address], 12/26/2022 21:38:09 12/27/19 23 12/26/2022 COMPR EHENS MIMI METAB OLIC PANEL chloride 103 mmol/ L 98-107 Not Available [facility] (Lab) [address] [place], [address], 12/26/2022 21:38:09 12/27/19 23 12/26/2022 COMPR EHENS MIMI METAB OLIC PANEL carbon dioxide 27 mmol/ L 22-30 Not Available [facility] (Lab) [address] [place], [address], 12/26/2022 21:38:09 12/27/19 23 12/26/2022 COMPR EHENS MIMI METAB OLIC PANEL anion gap 11.7 mmol/ L 14-22 low Not Available [facility] (Lab) [address] [place], [address], 12/26/2022 21:38:09 12/27/19 23 12/26/2022 COMPR EHENS MIMI METAB OLIC PANEL glucose 191 mg/dL 70-99 high Not Available [facility] (Lab) [address] [place], [address], 12/26/2022 21:38:09 12/27/19 23 12/26/2022 COMPR EHENS MIMI METAB OLIC PANEL BUN 21 mg/dL 8-19 high Not Available [facility] (Lab) [address] [place], [address], 12/26/2022 21:38:09 12/27/19 23 12/26/2022 COMPR EHENS MIMI METAB OLIC PANEL creatinine 0.74 mg/dL 0.66-1 .25 Not Available [facility] (Lab) [address] [place], [address], 12/26/2022 21:38:09 12/27/19 23 12/26/2022 COMPR EHENS MIMI METAB OLIC PANEL GFR >60 Refer ence Range : [place] ge GFR Healt hy Adult : >60 mL/mi n/1.7 3 m2 Chron ic Kidne y Disea se: 15-60 mL/mi n/1.7 3 m2 Kidne y Failu re: <15/m L/min /1.73 m2 www.n iddk. nih.g ov The MDRD study equat ion has not been valid ated in child sarah <18 years of age; pregn ant women ; the elder ly >85 years of age; or in some racia l or ethni c subgr oups, such as Hishi nics. Outsi de the valid ated isela eters , estim ated GFR is less accur ate, requi ring clini louis judgm ent on a case- by-ca se basis . Clini louis inter preta tion for other races and ages must be made by the clini tiffany. The MDRD study equat ion has not been valid ated for the evalu ation of serum creat inine relat ed to nutri jennifer l statu s or medic ation usage . For perso ns <18 years of age, a pedia tric GFR calcu lator is avail able on the F websi te: https ://delilah w.kid moustapha.o rg/pr ofess ional s/kdo qi/gf r_cal culat or Not Available [facility] (Lab) [address] [place], [address], 12/26/2022 21:38:09 12/27/19 23 12/26/2022 COMPR EHENS MIMI METAB OLIC PANEL alkaline phosphatase 66 U/L 38-126 Not Available [facility] (Lab) [address] [place], [address], 12/26/2022 21:38:09 12/27/19 23 12/26/2022 COMPR EHENS MIMI METAB OLIC PANEL alanine aminotransfe rase 20 U/L 0-35 Not Available [facility] (Lab) [address] [place], [address], 12/26/2022 21:38:09 12/27/19 23 12/26/2022 COMPR EHENS MIMI METAB OLIC PANEL aspartate aminotransfe rase 23 U/L 15-37 Not Available [facility] (Lab) [address] [place], [address], 12/26/2022 21:38:09 12/27/19 23 12/26/2022 COMPR EHENS MIMI METAB OLIC PANEL bilirubin, total 0.40 mg/dL 0.20-1 .30 Not Available [facility] (Lab) [address] [place], [address], 12/26/2022 21:38:09 12/27/19 23 12/26/2022 COMPR EHENS MIMI METAB OLIC PANEL calcium 8.9 mg/dL 8.4-10 .2 Not Available [facility] (Lab) [address] [place], [address], 12/26/2022 21:38:09 12/27/19 23 12/26/2022 COMPR EHENS MIMI METAB OLIC PANEL total protein 7.0 g/dL 6.3-8. 2 Not Available [facility] (Lab) [address] [place], [address], 12/26/2022 21:38:09 12/27/19 23 12/26/2022 COMPR EHENS MIMI METAB OLIC PANEL albumin 3.9 g/dL 3.0-4. 4 Not Available [facility] (Lab) [address] [place], [address], 12/26/2022 21:38:09 12/27/19 23 12/26/2022 COMPR EHENS MIMI METAB OLIC PANEL globulin 3.1 g/dL 2.6-4. 2 Not Available [facility] (Lab) [address] [place], [address], 12/26/2022 21:38:09 12/27/19 23 12/26/2022 COMPR EHENS MIMI METAB OLIC PANEL A/G ratio 1.3 ratio 1.0-2. 0 Not Available [facility] (Lab) [address] [place], [address], 12/26/2022 21:38:09 12/27/19 23 12/26/2022 LIPID PANEL cholesterol 167 mg/dL 140-19 9 NIH ROSANGELA NSUS RECOM MENDA TION FOR BUZZ STERO L: ADULT CHILD LOW RISK: <200 <170 BORDE RLINE : <200- 239 ----- HIGH RISK: >240 >200 Not Available [facility] (Lab) [address] [place], [address], 12/26/2022 21:38:11 12/27/19 23 12/26/2022 LIPID PANEL triglyceride s 182 mg/dL 0-150 high NIH ROSANGELA NSUS REPOR T RECOM MENDA TION FOR TRIGL YCERI RAFITA: ADULT CHILD LOW RISK: <150 ----- BODER LINE: 150-1 99 ----- HIGH RISK: >200 ----- Not Available [facility] (Lab) [address] [place], [address], 12/26/2022 21:38:11 12/27/19 23 12/26/2022 LIPID PANEL HDL cholesterol 42 mg/dL 40- Not Available [facility] (Lab) [address] [place], [address], 12/26/2022 21:38:11 12/27/19 23 12/26/2022 LIPID PANEL LDL cholesterol, calculated 89 mg/dL 0-130 NIH ROSANGELA NSUS REPOR T RECOM MENDA TIONS FOR LDL: ADULT CHILD LOW RISK <130 <110 (OPTI MAL LDL) <100 ----- BORDE RLINE : 130-1 59 ----- HIGH RISK: >160 >130 A TRIGL YCERI DE RESUL T >400 INVAL IDATE S THE CALCU LATIO N FOR LDL FRACT IONAT ION - THE LDL RESUL T WILL NOT BE REPOR FERNANDA. Not Available [facility] (Lab) [address] [place], [address], 12/26/2022 21:38:11 12/27/1912/26/2022 VITAM IN D 25-HY DROXY [id number] 26.5 NG/mL 30-100 low Vitam in D Statu s: Defic ient: <20 ng/mL Insuf ficie nt: 20-29 ng/mL Suffi cient : 30-10 0 ng/mL Not Available [facility] (Lab) [address] [place], [address], 12/26/2022 22:41:21 12/27/19 23 12/27/2022 HEMOG LOBIN A1C HA1C 7.3 % 4.0-6. 0 high Diabe carmelita Scree twin Crite lance: <5.7% Consi stent with absen ce of diabe carmelita 5.7-6 .4% Consi stent with incre ased risk for diabe carmelita (pred iabet es) >OR=6 .5% Consi stent with diabe carmelita REFER ENCE: Diabe carmelita Care 2016, 39(Kelsey ppl.1 ):s13 -s22 Not Available [facility] (Lab) [address] [place], [address], 12/27/2022 14:46:14 12/27/19 23 12/26/2022 XR, toe(s ), 2 or more view No observ ation record ed. [email or web address] [facility] [address], [place], [address], 12/30/2022 09:15:19 12/27/19 23 12/26/2022 XR, toe(s ), 2 or more view No observ ation record ed. [email or web address] [facility] [address], [place], [address], 02/25/2023 14:16:07 12/27/19 23 12/26/2022 XR, foot, 3 or more view No observ ation record ed. [email or web address] [facility] [address], [place], [address], 02/25/2023 14:16:08 12/27/19 23 12/26/2022 XR, foot, 3 or more view No observ ation record ed. [email or web address] [facility] [address], [place], [address], 12/30/2022 09:17:04 02/03/20 23 02/02/2023 DEXA No observ ation record ed. [address], [place], [address], 02/03/2023 07:42:06 02/03/20 23 02/02/2023 MAMMO , scree twin, digit al, bilat eral No observ ation record ed. [address], [place], [address], 02/03/2023 07:42:07 10/29/19 24 10/29/2023 XR, ankle No observ ation record ed. [facility] [address] [place], [address], 11/13/2023 14:13:21 Result Notes None recorded. Problems Name Problem SNOMED Code Status Onset Date Resolution Date Notes Provider Name and Address Organization Details Recorded Time Pain of left ankle joint 1330235021016 9103 Active 2019 Not Available [facility] 3 13:52:42 Radiothera py follow-up 358050581 Active Not Available [facility] 3 13:52:42 Tibialis posterior tendinitis 084319904 Active 2017 Not Available [facility] 3 13:52:42 Neuropathy due to diabetes mellitus 961061684 Active 2016 Not Available [facility] 3 13:52:42 Ankle pain 153607150 Active 2017 Not Available [facility] 3 13:52:43 Osteopenia 123906965 Active 2020 dexa 07/22 Not Available [facility] 3 13:52:43 Vitamin D deficiency 74892646 Active 2019 Not Available [facility] 3 13:52:43 Osteoarthr itis 743376778 Active Not Available [facility] 3 13:52:43 Well controlled type 2 diabetes mellitus 129599553 Active 2017 Not Available [facility] 3 13:52:43 Atrial fibrillati on 46638719 Active 2016 Not Available [facility] 3 13:52:43 Dysuria 44396974 Active 2021 Not Available [facility] 3 13:52:43 Diabetes mellitus 10570048 Active 2016 Not Available [facility] 3 13:52:43 Pain of toe of left foot 4159343832794 08 Active 2022 JACKELIN Durbin [address], [address], [place], [address] , [employer] 3 08:12:22 Problem Notes None recorded. Procedures Surgical History Date Name Laterality Status Provider Name and Address Organization Details Recorded Time 3 colonoscopy completed Suly Hope LPN [employer] 01/23/2023 14:46:02 3 Medicare Wellness CPT Code, Initial completed Kady Street MD [address], [address], [place], [address], [email or web address] 09/01/2022 12:24:29 Imaging Results Imaging Date Name Status LastModified by Organiz atac Details LastModified Time 12/26/2022 XR, toe(s), 2 or more view completed [email or web address] [facility] [address], [place], [address], 12/30/2022 09:15:19 12/26/2022 XR, toe(s), 2 or more view completed [email or web address] [facility] [address], [place], [address], 02/25/2023 14:16:07 12/26/2022 XR, foot, 3 or more view completed [email or web address] [facility] [address], [place], [address], 02/25/2023 14:16:08 12/26/2022 XR, foot, 3 or more view completed [facility] [address], [place], [address], 12/30/2022 09:17:04 02/02/2023 DEXA completed [address], [address], 02/03/2023 07:42:06 02/02/2023 MAMMO, screening, digital, bilateral completed [address], [address], 02/03/2023 07:42:07 10/29/2023 XR, ankle completed [email or web address] [facility] [address] [place], [address], 11/13/2023 14:13:21 Procedure Notes None recorded. Medical Equipment None Reported. Allergies No known drug allergies Medications Name Sig Start Date Stop Date Status Note LastModified by Organization Details LastModified Time amoxicillin 500 mg capsule TAKE 4 CAPSULES BY MOUTH 1 HOUR PRIOR TO APPOINTME NT 03/10 completed Not Available Not Available Not Available metformin 500 mg tablet Take 1 tablet every day by oral route. 2023 active Not Available Not Available Not Avai lable azithromyci n 250 mg tablet TAKE 2 TABLETS (500 MG) BY ORAL ROUTE ONCE DAILY FOR 1 DAY THEN 1 TABLET (250 MG) BY ORAL ROUTE ONCE DAILY FOR 4 DAYS 11/14 completed Not Available Not Available Not Available tizanidine 4 mg tablet Take 1 tablet every 8 hours by oral route. active Not Available Not Available No t Available hydrocodone 5 mg-acetamin ophen 325 mg tablet TAKE 1 TABLET BY MOUTH EVERY 6 HOURS NEEDED FOR PAIN 01/20 completed Not Available Not Available Not Available glipizide ER 5 mg tablet, extended release 24 hr Take 1 tablet every day by oral route. 2023 active Not Available Not Available Not Avai lable tramadol 50 mg tablet TK 1 T PO Q 6 H PRN P RATED 4 TO 6 05/16 completed Not Available Not Available Not Available amoxicillin 500 mg tablet TK 4 TS PO 1 HOUR B DENTAL PRO active Not Available Not Available No t Available meloxicam 7.5 mg tablet TAKE 1 TABLET BY MOUTH EVERY DAY NEEDED active Not Available Not Available No t Available amoxicillin 875 mg tablet TK 1 T PO BID x 7 days active Not Available Not Available No t Available DOK 100 mg capsule TK 1 C PO BID 11/07 completed Not Available Not Available Not Available gabapentin 800 mg tablet TAKE 1 TABLET BY MOUTH THREE TIMES DAILY active Not Available Not Available No t Available hydrocodone 7.5 mg-acetamin ophen 325 mg tablet 05/16 completed Not Available Not Available Not Available cephalexin 500 mg capsule TAKE 1 CAPSULE BY MOUTH EVERY 12 HOURS FOR 10 DAYS active Not Available Not Available No t Available warfarin 5 mg tablet Take 1 tablet every day by oral route. active Not Available Not Available No t Available digoxin 125 mcg (0.125 mg) tablet TAKE 1 TABLET BY MOUTH DAILY active Not Available Not Available No t Available ergocalcife rol (vitamin D2) 1,250 mcg (50,000 unit) capsule active Not Available Not Available Not Available warfarin 1 mg tablet TAKE 3 TABLETS BY MOUTH DAILY OR DIRECTED WITH 5 MG TABLET active Not Available Not Available No t Available fluticasone propionate 50 mcg/actuati on nasal spray,suspe nsion SPRAY 2 SPRAYS IEN D active Not Available Not Available No t Available lisinopril 2.5 mg tablet Take 1 tablet every day by oral route. 2023 active Not Available Not Available Not Avai lable doxycycline hyclate 100 mg tablet 11/10 completed Not Available Not Available Not Available nitrofurant oin monohydrate /macrocryst als 100 mg capsule Take 1 capsule every 12 hours by oral route for 7 days. 11/10 completed Not Available Not Available Not Available chlorhexidi ne gluconate 0.12 % mouthwash FOLLOW DIRECTION S ON PACKAGE AND RINSE 2 TO 3 TIMES D AND SPIT active Not Available Not Available No t Available glipizide ER 5 mg 24 hr tablet,exte nded release Take 1 tablet every day by oral route. 05/16 completed Not Available Not Available Not Available sodium,pota ssium,mag sulfates 17.5 gram-3.13 gram-1.6 gram oral soln MIX AND DRINK DIRECTED active Not Available Not Available No t Available Xarelto 10 mg tablet 05/16 completed Not Available Not Available Not Available OneTouch Verio test strips TEST DAILY active Not Available Not Available No t Available OneTouch Verio test strips test daily 11/07 completed Not Available Not Available Not Available OneTouch Delica Plus Lancet 30 gauge TEST ONCE DAILY active Not Available Not Available No t Available OneTouch Verio Reflect Meter TEST ONCE DAILY active Not Available Not Available No t Available Ozempic 1 mg/dose (4 mg/3 mL) subcutaneou s pen injector INJECT 1 MG SUBCUTANE OUS EVERY WEEK 2023 active Not Available Not Available Not Avai lable Ozempic 0.25 mg or 0.5 mg (2 mg/3 mL) subcutaneou s pen injector INJECT 0.5 MG UNDER THE SKIN EVERY WEEK 06/04 completed Not Available Not Available Not Available Vitals Date Recorded Body mass index (BMI) Body height Oxygen saturation Oxygen saturation in Arterial blood by Pulse oximetry Heart rate Body temperature Body weight Systolic blood pressure Diastolic blood pressure Provider Name and Address Organization Details Last Updated DateTime 3 36.6 kg/m2 170.18 cm 97 % 97 % 82 /min 96.1 [degF] 481105. 61 g 136 mm[Hg] 78 mm[Hg] Not Available [facility] 3 13:52:25 Date Recorded Body height Systolic blood pressure Diastolic blood pressure Provider Name and Address Organization Details Last Updated DateTime 05/22/2022 170.18 cm 128 mm[Hg] 64 mm[Hg] Not Available [facility] 07/02/2022 13:52:25 Date Recorded Body height Body mass index (BMI) Body weight Oxygen saturation Oxygen saturation in Arterial blood by Pulse oximetry Heart rate Systolic blood pressure Diastolic blood pressure Provider Name and Address Organization Details Last Updated DateTime 3 170.18 cm 34.5 kg/m2 46379.3 2 g 98 % 98 % 87 /min 126 mm[Hg] 70 mm[Hg] Janteh Leach CMA [place] [email or web address] [facility] 3 12:16:18 Date Recorded Body temperature Provider Name a nd Address Organization Details Last Updated DateTime 09/01/2022 97.8 [degF] Kady Street MD [address] [place] [address], [id number], [place] [email or web address] 09/01/2022 12:23:52 Date Recorded Body height Body mass index (BMI) Body weight Body temperature Heart rate Oxygen saturation Oxygen saturation in Arterial blood by Pulse oximetry Systolic blood pressure Diastolic blood pressure Provider Name and Address Organization Details Last Updated DateTime 3 170.18 cm 37.3 kg/m2 095788. 98 g 97 [degF] 67 /min 96 % 96 % 116 mm[Hg] 68 mm[Hg] Marianna Glass CNA [place] [email or web address] [facility] 3 08:05:15 Date Recorded Body height Body mass index (BMI) Body weight Body temperature Heart rate Oxygen saturation Oxygen saturation in Arterial blood by Pulse oximetry Systolic blood pressure Diastolic blood pressure Provider Name and Address Organization Details Last Updated DateTime 3 170.18 cm 36.8 kg/m2 916989. 21 g 97.4 [degF] 74 /min 98 % 98 % 130 mm[Hg] 82 mm[Hg] Ayan Suazo RN [facility] 3 08:34:40 Social History Question Answer Notes LastModified by Organizat ion Details LastModified Time Tobacco Smoking Status Never Smoker Not Available [facility] 07/02/2022 13:52:02 What Is Your Level Of Alcohol Consumption? None [id number] Information not available 07/02/2022 What Is Your Level Of Caffeine Consumption? Moderate [email or web address] Information not available 09/01/2022 In The 14 Days Before Symptom Onset, Have You Had Close Contact With A Laboratory-confirm ed COVID-19 While That Case Was Ill? No [id number] Information not available 07/02/2022 In The 14 Days Before Symptom Onset, Have You Had Close Contact With A Person Who Is Under Investigation For COVID-19 While That Person Was Ill? No [id number] Information not available 07/02/2022 What Type Of Diet Are You Following? REGULAR [id number] Information not available 07/02/2022 Do You Use Any Illicit Or Recreational Drugs? No [id number] Information not available 07/02/2022 Has Tobacco Cessation Counseling Been Provided? No [id number] Information not available 07/02/2022 Do You Or Have You Ever Used Any Other Forms Of Tobacco Or Nicotine? No [id number] Information not available 07/02/2022 Sex: Unknown Functional Status None recorded. Mental Status None recorded. Family History Relationship Description Onset Age of this Age Resolved Age Notes LastModified by Organization Details LastModified Time Father Family history of malignant neoplasm [id number] Not available 07/02/2022 13:52:08 Father Diabetes mellitus [id number] Not available 07/02/2022 13:52:08 Mother Family history of malignant neoplasm [id number] Not available 07/02/2022 13:52:08 Medical History No medical history recorded. Gynecological History Statement/Question Response Sexually Active? N Dislike of Light during Menstrual Headac he N Menses Monthly N STIs/STDs N Current Control Method Menopause Breast Problems no Discharge no Obstetrics History GPAL:G 0 P 0 0 0 0 Immunizations Vaccine Type Date Status Note Provider Spike whitten and Address Organization Details Recorded Time pneumococcal polysaccharide PPV23 [address] MD [address] [facility], [facility] [address], [place], [address], [place] [facility] 09/30/2022 17:50:46 Influenza, high-dose, quadrivalent, PF [address] Suazo RN [facility], [place] - [facility] 03/10/2023 11:11:32 COVID-19, mRNA, LNP-S, PF, 30 mcg/0.3 mL dose 1 completed Not Available [facility] 07/02/2022 13:54:14 COVID-19, mRNA, LNP-S, PF, 30 mcg/0.3 mL dose 1 completed Not Available [facility] 07/02/2022 13:54:14 COVID-19, mRNA, LNP-S, PF, 30 mcg/0.3 mL dose 1 completed Not Available [facility] 07/02/2022 13:54:14 Influenza, split virus, quadrivalent, PF 0 completed Not Available [facility] 07/02/2022 13:54:14 Influenza, split virus, quadrivalent, PF 1 completed Not Available [facility] 07/02/2022 13:54:14 Influenza, split virus, quadrivalent, PF 0 completed Not Available [facility] 07/02/2022 13:54:14 Past Encounters Encounter ID Performer Location Encounter Start Date Encounter Closed Date Diagnosis/Indication Diagnosis SNOMED-CT Code Diagnosis ICD10 Code Diagnosis Note [id number] [facility] [place] [address] [facility] [address] [place] [address] 09/10/2020 00:00:00 09/19/2020 11:00:38 [id number] [facility] [place] [address] [facility] [address] [place] [address] 03/26/2021 00:00:00 03/26/2021 22:40:19 [id number] [facility] [place] [address] [facility] [address] [place] [address] 06/13/2021 00:00:00 06/30/2021 20:29:28 [id number] [facility] [place] [address] [facility] [address] [place] [address] 01/20/2022 00:00:00 01/20/2022 10:24:30 [id number] [facility] Primary [facility] [place] [address] [facility] [address] [place] [address] 04/29/2022 00:00:00 04/29/2022 17:46:10 [id number] [facility] Primary [facility] [place] [address] [facility] [address] [place] [address] 05/07/2022 00:00:00 05/07/2022 11:34:12 [id number] [facility] Primary [facility] [place] [address] [facility] [address] [place] [address] 05/22/2022 00:00:00 05/22/2022 18:18:[id number] MD [facility] Primary [facility] [place] [address] [facility] [address] [place] [address] 09/01/2022 12:11:36 09/01/2022 12:46:45 Adult health examination 014482377 Z00.00 Colonoscop y referral givenMammo gram referral givenDEXA order given (osteopeni a 2020)Pneum ovax 23 todayflu vaccine yearlycovi d booster recommende dFasting labs up to date Screening for disorder 724046951 Z13.9 Screening for malignant neoplasm of colon 746411360 Z12.11 Screening mammography 24 617134 Z12.31 Postmenopausal state 764 63764 Z78.0 Active or passive immunization 953831103 Z23 [id number] JACKELIN Durbin [facility] Primary Care [place] [address] [facility] [address] [place] [address] 12/26/2022 07:58:17 12/26/2022 08:37:33 Pain of toe of left foot 7428441810 03364 M79.675 M79.671 New problemLef t great toe pain likely d/t ingrown toenail. Left great toenail curved and appears ingrown on lateral aspect. Will send for xray to evaluate joints and ensure no injury. Keep nail clean with antibacter ial dial soap, soak in Epsom salts twice daily, then apply GEOVANI, elevate foot, no tight shoes, do not sleep in socks. Meloxicam 7.5mg as directed p.r.n. pain. Complete all antibiotic s as prescribed . Podiatry referral generated for extraction . Right foot pain due to palpable nodule on lateral aspect of foot. Will send for xrays to ensure no bony damage. Advised to wear properly fitted shoes. Take meloxicam as directed above and f/u with podiatry. Diabetes mellitus 803428 09 E13.42 Z13.220 Z79.899 Chronic, current status unknownDis cussed need for regular exercise, increase intake of water/vege tables/fib er. Decrease intake of carbs, especially white rice/pasta /flour/sterling ad/sugar.C ontinue current regimen pending updated lab results. Vitamin D deficiency [id number] MD [facility] Primary Care [address] [place] [address] 03/10/2023 08:28:34 03/10/2023 09:00:18 Administration of influenza vaccine 62393018 Z23 Diabetes mellitus 202044 09 E13.42 Z13.220 Z79.899 not at goaladd ozempic 0.25 mg sc qweekcheck home sugars in AMf/u in 4 weeks Health Concerns Section Related Observation LastModified by Organization Detai ls LastModified Time None Recorded Concern Status LastModified by Organization Details LastModified Time None Recorded Advance Directives Directive None Recorded Payers Encounter Date Sequence Insurance Name Policy Number Policy Quinn Covered Member ID Quinn Member ID Guarantor Name 09/01/2022 1 [facility] (MEDICARE REPLACEMENT/A DVANTAGE - HMO) [id number] Maris Cho [id number] Maris Cho 12/26/2022 1 [facility] (MEDICARE REPLACEMENT/A DVANTAGE - HMO) [id number] Maris Cho [id number] Maris Cho 03/10/2023 1 [facility] (MEDICARE REPLACEMENT/A DVANTAGE - HMO) [id number] Maris Cho [id number] Maris Cho Notes Date Note Type Note Provider Name and Address Organization Details Recorded Time 09/01/2022 text/html here for wellnes s exam. no chest pain or sob Kady Street MD [address] [place] [address], [address], [place], [address], [email or web address] 09/30/2022 17:52:25 12/26/2022 text/html 1. Pt in office for problem visit with c/o having pain in left big toe for the past 2 weeks. No improvement with Tylenol. Pt states she is concerned it might be gout.2. Pt also c/o having a painful lump on the outside of her right foot also. States she hasn't injured it or fallen. Not sure when that showed up, but doesn't know what it is. JACKELIN Durbin [address], [address], [place], [address], [email or web address] 12/26/2022 14:06:37 03/10/2023 text/html here to f/u on diabetes. A1c is 8.3, home sugars are running 130s AM fasting. She has been stressed and has gained some weight. Kady Street MD [address], [facility] [address], [place], [address], [email or web address] 03/10/2023 08:59:00 OBGyn Episode No OBEpisode recorded.
[2024-08-30 07:42] LABS: Hematocrit 39.8 % (37.0-47.0); Hemoglobin 12.7 g/dL (12.0-15.0); Mean Corpuscular HGB Conc 31.9 g/dl (32-36); Mean Corpuscular Hemoglobin 30.3 pg (26-34); Mean Platelet Volume 9.5 fl (7.4-10.4); Platelet Count Result 236 k/mm3 (150-375); Red Blood Count 4.19 M/mm3 (4.2-5.4); Red Cell Distribution Width 13.6 % (11.5-14.5); White Blood Count 6.3 K/mm3 (4.5-10.0)
[2024-08-30 07:53] LABS: Alanine Aminotransferase 16 U/L (6-35); Albumin Level 4.1 g/dL (3.5-5.1); Alkaline Phosphatase 57 U/L (38-126); Anion Gap 7 mmol/L (4-12); Aspartate Amino Transferase 25 U/L (14-36); Bilirubin,Total 0.5 mg/dL (0.2-1.3); Blood Urea Nitrogen 22 mg/dL (7-17); Calcium 8.7 mg/dL (8.4-10.2); Carbon Dioxide 27 mmol/L (22-30); Chloride 105 mmol/L (98-107); Cholesterol 149 mg/dL (0-200); Estimated Glomerular Filt Rate > 60; Glucose 124 mg/dL (65-110); HDL Direct 60 mg/dL; Potassium 4.3 mmol/L (3.4-5.0); Sodium 139 mmol/L (137-145); Triglycerides 65 mg/dL (<150)
[2024-08-30 08:04] LABS: LDL Cholesterol Direct 58 mg/dL
== END 2024-08-30 07:16 | disposition home or self-care (01) ==
LOC: ANHLAB 07:16
PROVIDERS: PCP Family Medicine; Visit Provider Family Medicine
DX: E66.9 Obesity, unspecified (principal); E08.40 Diabetes mellitus due to underlying condition with diabetic neuropathy, unspecified; I10 Essential (primary) hypertension; Z79.899 Other long term (current) drug therapy
CPT/HCPCS: 36415; 80053; 80061; 83036; 84443; 85027

== ENCOUNTER 2024-09-27 13:50 | Outpatient (RCR) | payer MEDICARE, SELFPAY ==
[2024-07-01 08:50] LABS: INR 2.3
[2024-08-15 18:14] LABS: INR 2.1; Prothrombin Time 23.7 Seconds (11.1-14.7)
[2024-09-27 14:57] LABS: INR 2.3; Prothrombin Time 25.4 Seconds (11.1-14.7)
== END 2024-09-29 23:59 | disposition home or self-care (01) ==
LOC: ANHLAB 13:50
PROVIDERS: PCP Family Medicine; Visit Provider Specialist
DX: I48.91 Unspecified atrial fibrillation (principal)
CPT/HCPCS: 36415; 85610

== ENCOUNTER 2025-01-27 10:25 | Outpatient (RCR) | payer MEDICARE, SELFPAY ==
[2024-11-10 14:06] LABS: INR 3.1; Prothrombin Time 30.5 Seconds (11.1-14.7)
[2024-12-21 12:11] LABS: INR 2.3; Prothrombin Time 24.8 Seconds (11.1-14.7)
[2025-01-27 15:05] LABS: INR 2.2; Prothrombin Time 23.8 Seconds (11.1-14.7)
== END 2025-02-08 23:59 | disposition home or self-care (01) ==
LOC: ANHLAB 10:25
PROVIDERS: PCP Family Medicine; Visit Provider Specialist
DX: I48.91 Unspecified atrial fibrillation (principal)
CPT/HCPCS: 36415; 85610

== ENCOUNTER 2025-01-27 10:27 | Outpatient (CLI) | payer MEDICARE, SELFPAY ==
--- OUTSIDE RECORDS SUMMARY | 2025-01-27 10:30 | XMS_ITS | Encounter Summary ---
Author Organization [facility] Healthcare Address [address] [place] [address] Care Team Providers Care Clinical Nurse Reviewer Name Role Phone Kady Street MD Primary Care Provider + Encounter Details Date Type Department Care Team (Late st Contact Info) Description 07/01/2024 Orders Only [facility] Health Information Management [address] [place] [phone] Scanning, Provider Social History Tobacco Use Types Packs/Day Years Used Date Smoking Tobacco: Never Smokeless Tobacco: Never Alcohol Use Standard Drinks/Week Comments No 0 (1 standard drink = 0.6 oz pur e alcohol) Comments Unknown Sex and Gender Information Value Date Recorded Sex Assigned at Not on file 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
--- OUTSIDE RECORDS SUMMARY | 2025-01-27 10:30 | XMS_ITS | Encounter Summary ---
Author Organization [facility] Healthcare Address [address] [place] [address] Care Team Providers Care Primary Teaching Assistant Name Role Phone Kady Street MD Primary Care Provider + Encounter Details Date Type Department Care Team (Late st Contact Info) Description 01/25/[address] 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 Gender Identity Not on file Sexual Orientation Not on file documented as of this encounter Plan of Treatment Not on file documented as of this encounter Procedures Procedure Name Priority Date/Time Associated Diagnosis Comments SCAN - LABS 01/25/2024 documented in this encounter Results * SCAN - LABS (01/25/2024) us Provider Scanning Final Result documented in this encounter Visit Diagnoses Not on filedocumented in this encounter Care Teams Primary Teaching Assistant Relationship Specialty Start Date End Date Kady Street MD PCP - General Family Medicine 01/15/17 documented as of this encounter
--- OUTSIDE RECORDS SUMMARY | 2025-01-27 10:30 | XMS_ITS | Encounter Summary ---
Author Organization [facility] Healthcare Address [address] [place] [address] Care Team Providers Care Psychiatric Np Name Role Phone Kady Street MD Primary Care Provider + Encounter Details Date Type Department Care Team (Late st Contact Info) Description 09/27/2024 Orders Only [facility] Health Information Management [address] [place] [address] Scanning, Provider Social History Tobacco Use Types Packs/Day Years Used Date Smoking Tobacco: Never Smokeless Tobacco: Never Alcohol Use Standard Drinks/Week Comments No 0 (1 standard drink = 0.6 oz pur e alcohol) Comments Unknown Sex and Gender Information Value Date Recorded Sex Assigned at Not on file 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
--- OUTSIDE RECORDS SUMMARY | 2025-01-27 10:30 | XMS_ITS | Encounter Summary ---
Author Organization [facility] Healthcare Address [address] [place] [address] Care Team Providers Care Salvage Worker Name Role Phone Kady Street MD Primary Care Provider + Encounter Details Date Type Department Care Team (Late st Contact Info) Description 01/12/2018 Orders Only [facility] Health Information Management [address] [place] [phone] Scanning, Provider Social History Tobacco Use Types Packs/Day Years Used Date Smoking Tobacco: Never Smokeless Tobacco: Never Alcohol Use Standard Drinks/Week Comments No 0 (1 standard drink = 0.6 oz pur e alcohol) Comments Unknown Sex and Gender Information Value Date Recorded Sex Assigned at Not on file 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
--- OUTSIDE RECORDS SUMMARY | 2025-01-27 10:30 | XMS_ITS | Encounter Summary ---
Author Organization [facility] Healthcare Address [address] [place] [address] Care Team Providers Care Non Emergency Services Ambulance Driver Name Role Phone Kady Street MD Primary Care Provider + Encounter Details Date Type Department Care Team (Late st Contact Info) Description 04/29/2024 Orders Only [facility] Health Information Management [address] [place] [phone] Scanning, Provider Social History Tobacco Use Types Packs/Day Years Used Date Smoking Tobacco: Never Smokeless Tobacco: Never Alcohol Use Standard Drinks/Week Comments No 0 (1 standard drink = 0.6 oz pur e alcohol) Comments Unknown Sex and Gender Information Value Date Recorded Sex Assigned at Not on file 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 Gender Identity Not on file Sexual Orientation Not on file documented as of this encounter Plan of Treatment Not on file documented as of this encounter Procedures Procedure Name Priority Date/Time Associated Diagnosis Comments SCAN - LABS 04/29/2024 documented in this encounter Results * SCAN - LABS (04/29/2024) us Provider Scanning Final Result documented in this encounter Visit Diagnoses Not on filedocumented in this encounter Care Teams Non Emergency Services Ambulance Driver Relationship Specialty Start Date End Date Kady Street MD PCP - General Family Medicine 01/15/17 documented as of this encounter
--- OUTSIDE RECORDS SUMMARY | 2025-01-27 10:30 | XMS_ITS | Encounter Summary ---
Author Organization [facility] Healthcare Address [address] [place] [address] Care Team Providers Care Social Service Worker Name Role Phone Kady Street MD Primary Care Provider + Encounter Details Date Type Department Care Team (Late st Contact Info) Description 02/21/2024 Orders Only [facility] Health Information Management [address] [place] [phone] Scanning, Provider Social History Tobacco Use Types Packs/Day Years Used Date Smoking Tobacco: Never Smokeless Tobacco: Never Alcohol Use Standard Drinks/Week Comments No 0 (1 standard drink = 0.6 oz pur e alcohol) Comments Unknown Sex and Gender Information Value Date Recorded Sex Assigned at Not on file 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
--- OUTSIDE RECORDS SUMMARY | 2025-01-27 10:30 | XMS_ITS | Encounter Summary ---
Author Organization [facility] Healthcare Address [address] [place] [address] Care Team Providers Care Head Golf Professional Name Role Phone Kady Street MD Primary Care Provider + Encounter Details Date Type Department Care Team (Late st Contact Info) Description 08/15/2024 Orders Only [facility] [place] Health Information Management [address] [place] [phone] Scanning, Provider Social History Tobacco Use Types Packs/Day Years Used Date Smoking Tobacco: Never Smokeless Tobacco: Never Alcohol Use Standard Drinks/Week Comments No 0 (1 standard drink = 0.6 oz pur e alcohol) Comments Unknown Sex and Gender Information Value Date Recorded Sex Assigned at Not on file 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
--- OUTSIDE RECORDS SUMMARY | 2025-01-27 10:30 | XMS_ITS | Encounter Summary ---
Author Organization [facility] Healthcare Address [address] [place] [address] Care Team Providers Care Scow Derrick Operator Name Role Phone Kady Street MD Primary Care Provider + Encounter Details Date Type Department Care Team (Late st Contact Info) Description 03/27/2023 Orders Only [facility] [place] Health Information Management [address] [place] [id number] Scanning, Provider Social History Tobacco Use Types Packs/Day Years Used Date Smoking Tobacco: Never Smokeless Tobacco: Never Alcohol Use Standard Drinks/Week Comments No 0 (1 standard drink = 0.6 oz pur e alcohol) Comments Unknown Sex and Gender Information Value Date Recorded Sex Assigned at Not on file Legal 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
--- OUTSIDE RECORDS SUMMARY | 2025-01-27 10:30 | XMS_ITS | Encounter Summary ---
Author Organization [facility] Healthcare Address [address] [place] [address] Care Team Providers Care Tool Grinding Technician Name Role Phone Kady Street MD Primary Care Provider + Encounter Details Date Type Department Care Team (Late st Contact Info) Description 07/25/2023 Orders Only [facility] [place] Health Information Management [address] [place] [id number] Scanning, Provider Social History Tobacco Use Types Packs/Day Years Used Date Smoking Tobacco: Never Smokeless Tobacco: Never Alcohol Use Standard Drinks/Week Comments No 0 (1 standard drink = 0.6 oz pur e alcohol) Comments Unknown Sex and Gender Information Value Date Recorded Sex Assigned at Not on file Legal 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
--- OUTSIDE RECORDS SUMMARY | 2025-01-27 10:30 | XMS_ITS | Clinical Summary ---
Author Organization [facility] Address [address] [place] [address] Care Team Providers Care Driver'S License Examiner Name Role Phone Unavailable Primary Care Provider [...] Virus (HCV) Screening 1955 TdaP Immunization 1956 Cologuard 2001 Colonoscopy 2001 Colorectal Cancer Screening 2001 Immunochemical Fecal Occult Blood 2001 Pneumococcal Immunization (5 0+ years) (1 of 1 - PCV) 2006 Zoster Immunization (1 of 2) 2006 Influenza Immunization (#1) 01/02/202502/01, 09/05/2019 SARS-COV-2 Immunization ( - season) 2025 02/12/2021, 07/03/2020 Respiratory Syncytial Virus (RSV) Immunization (Adult) (1 - 1-dose 75+ series) 12/21/2031 Hepatitis B Immunization Aged Out No longer eligible based on patient's age to complete this topic Human Papillomavirus (HPV) Immunization Aged Out No longer eligible b ased on patient's age to complete this topic Meningococcal Immunization (ACWY) Aged Out No longer eligible b ased on patient's age to complete this topic Rotavirus Immunization Aged Out No lo nger eligible based on patient's age to complete this topic
--- OUTSIDE RECORDS SUMMARY | 2025-01-27 10:30 | XMS_ITS | Clinical Summary ---
Author Organization [facility] [place] [address] Address [address] [place] [address] Care Team Providers Care Lead Ruby On Rails Developer Name Role Phone Kady Street MD Primary [...] 1 TABLET BY MOUTH DAILY 90 tablet 1 025 Active warfarin (COUMADIN) 1 mg tablet TAKE 1 TABLET BY MOUTH DAILY. EXCEPT 7 MG ON FRIDAYS OR DIRECTED BY PRESCRIBER 34 tablet 1 025 Active warfarin (COUMADIN) 5 mg tablet TAKE 1 TABLET BY MOUTH DAILY. EXCEPT 7 MG ON FRI OR DIRECTED BY PRESCRIBER 30 tablet 1 025 Active warfarin (COUMADIN) 5 mg tablet Take 6mg daily except 7mg on Fri or as directed by physician. 30 tablet 1 025 2024 Discontinued warfarin (COUMADIN) 1 mg tablet Take 6mg daily except 7mg on Fri or as directed by physician. 34 tablet 1 025 2024 Discontinued Active Problems Problem Noted Date Diagnosed Date Atrial fibrillation (CMS/HCC) [I48.91] 7 Encounters Date Type Department Care Team Description 12/22/2024 Anticoagulation Visit [facility] Cardiology [address] [place] [address] [address] [place] [phone] Vicki Liz RN Atrial fibrillation (CMS/HCC) [I48.91] (Primary Dx) 12/21/2024 Orders Only [facility] [place] Health Information Management [address] [place] [phone] Scanning, Provider 11/14/2024 Anticoagulation Visit [facility] Cardiology [address] [place] [address] [address] [place] [phone] Vicki Liz RN Atrial fibrillation (CMS/HCC) [I48.91] (Primary Dx) 11/10/2024 Telephone [facility] Cardiology [address] [place] [address] [address] [place] [phone] Arabella Jerry MA Due for INR from Last 3 Months Medical History Medical [...] on file Legal Sex Female 1:58 AM MANAGER WOMEN Gender Identity Not on file Sexual Orientation Not on file Obstetrics History Last Filed Vital Signs Vital Sign Reading Time Taken Comments Blood Pressure 126/78 06/16/2024 10:59 AM MANAGER WOMEN Pulse 101 06/16/2024 10:59 AM MANAGER WOMEN Temperature - - Respiratory Rate 16 01/15/2017 2:32 PM CDT Oxygen Saturation 97% 06/16/2024 10:59 AM MANAGER WOMEN Inhaled Oxygen Concentration - - Weight 93.4 kg (206 lb) 06/16/2024 10:59 AM MANAGER WOMEN Height 167.6 cm (5' 6) 06/16/2024 10:59 AM MANAGER WOMEN Body Mass Index 33.25 06/16/2024 10:59 AM MANAGER WOMEN Plan of Treatment Health Maintenance Due Date [...] 65+ 2021 Covid-19 Vaccine (2 - season) 01/02/202504/2021 Influenza Vaccine (#1) 2025 02/20/2020, 2019 Procedures Procedure Name Priority Date/Time Associated Diagnosis Comments SCAN - LABS 12/21/2024 PROTIME-INR Routine 12/21/2024 PROTIME-INR Routine 11/14/2024 from Last 3 Months Results * SCAN - LABS (12/21/2024) us Provider Scanning Final Result * (ABNORMAL) Protime-INR (12/21/2024) INR 2.30(A) 0.90 - 1.10 EXTERNAL LAB Blood Historical Provider MD LAB BLOOD ORDERABLES Claire l Result EXTERNAL LAB * (ABNORMAL) Protime-INR (11/14/2024) INR 3.10(A) 0.90 - 1.10 EXTERNAL LAB Blood Historical Provider MD LAB BLOOD ORDERABLES Edit ed Result - Final EXTERNAL LAB from Last 3 Months Insurance [employer] [facility] MDCR HMO REF [facility] MDCR HMO REF Care Teams Lead Ruby On Rails Developer Relationship Specialty Start Date End Date Kady Street MD PCP - General Family Medicine 01/15/17
--- OUTSIDE RECORDS SUMMARY | 2025-01-27 10:30 | XMS_ITS | Encounter Summary ---
Author Organization [facility] Healthcare Address [address] [place] [address] Care Team Providers Care Special Education Para Professional Name Role Phone Kady Street MD Primary Care Provider + Encounter Details Date Type Department Care Team (Late st Contact Info) Description 03/28/2024 Orders Only [facility] [place] Health Information Management [address] [place] [phone] Scanning, Provider Social History Tobacco Use Types Packs/Day Years Used Date Smoking Tobacco: Never Smokeless Tobacco: Never Alcohol Use Standard Drinks/Week Comments No 0 (1 standard drink = 0.6 oz pur e alcohol) Comments Unknown Sex and Gender Information Value Date Recorded Sex Assigned at Not on file Legal Sex Female 1:58 AM APPLIANCE COUNSELOR Gender Identity Not on file Sexual Orientation Not on file documented as of this encounter Plan of Treatment Not on file documented as of this encounter Procedures Procedure Name Priority Date/Time Associated Diagnosis Comments SCAN - LABS 03/28/2024 documented in this encounter Results * SCAN - LABS (03/28/2024) us Provider Scanning Final Result documented in this encounter Visit Diagnoses Not on filedocumented in this encounter Care Teams Special Education Para Professional Relationship Specialty Start Date End Date Kady Street MD PCP - General Family Medicine 01/15/17 documented as of this encounter
--- OUTSIDE RECORDS SUMMARY | 2025-01-27 10:30 | XMS_ITS | Encounter Summary ---
Author Organization [facility] Healthcare Address [address] [place] [address] Care Team Providers Care Wood Ski Maker Name Role Phone Kady Street MD Primary Care Provider + Encounter Details Date Type Department Care Team (Late st Contact Info) Description 01/29/2023 Orders Only [facility] [place] Health Information Management [address] [place] [phone] Scanning, Provider Social History Tobacco Use Types Packs/Day Years Used Date Smoking Tobacco: Never Smokeless Tobacco: Never Alcohol Use Standard Drinks/Week Comments No 0 (1 standard drink = 0.6 oz pur e alcohol) Comments Unknown Sex and Gender Information Value Date Recorded Sex Assigned at Not on file Legal Sex Female 1:58 AM CORPORATE COUNSEL Gender Identity Not on file Sexual Orientation Not on file documented as of this encounter Plan of Treatment Not on file documented as of this encounter Procedures Procedure Name Priority Date/Time Associated Diagnosis Comments SCAN - LABS 01/29/2023 documented in this encounter Results * SCAN - LABS (01/29/2023) us Provider Scanning Final Result documented in this encounter Visit Diagnoses Not on filedocumented in this encounter Care Teams Wood Ski Maker Relationship Specialty Start Date End Date Kady Street MD PCP - General Family Medicine 01/15/17 documented as of this encounter
--- OUTSIDE RECORDS SUMMARY | 2025-01-27 10:30 | XMS_ITS | Encounter Summary ---
Author Organization [facility] Healthcare Address [address] [place] [address] Care Team Providers Care Revit Drafter Name Role Phone Kady Street MD Primary Care Provider + Encounter Details Date Type Department Care Team (Late st Contact Info) Description 12/21/2024 Orders Only [facility] [place] Information Management [address] [place] [phone] Scanning, Provider Social History Tobacco Use Types Packs/Day Years Used Date Smoking Tobacco: Never Smokeless Tobacco: Never Alcohol Use Standard Drinks/Week Comments No 0 (1 standard drink = 0.6 oz pur e alcohol) Comments Unknown Sex and Gender Information Value Date Recorded Sex Assigned at Not on file Legal Sex Female 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
--- OUTSIDE RECORDS SUMMARY | 2025-01-27 10:30 | XMS_ITS | Encounter Summary ---
Author Organization [facility] Healthcare Address [address] [place] [address] Care Team Providers Care Finish Specialist Name Role Phone Kady Street MD Primary Care Provider + Encounter Details Date Type Department Care Team (Late st Contact Info) Description 02/05/2023 Orders Only [facility] [place] Health Information Management [address] [place] [phone] Scanning, Provider Social History Tobacco Use Types Packs/Day Years Used Date Smoking Tobacco: Never Smokeless Tobacco: Never Alcohol Use Standard Drinks/Week Comments No 0 (1 standard drink = 0.6 oz pur e alcohol) Comments Unknown Sex and Gender Information Value Date Recorded Sex Assigned at Not on file 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
[2025-01-27 11:32] LABS: MALB Creatinine Ratio < 55.6 mg/g (0-30)
== END 2025-01-27 10:28 | disposition home or self-care (01) ==
LOC: ANHLAB 10:27
PROVIDERS: PCP Family Medicine; Visit Provider Family Medicine
DX: E11.9 Type 2 diabetes mellitus without complications (principal)
CPT/HCPCS: 36415; 82043

== ENCOUNTER 2025-03-20 10:18 | Outpatient (CLI) | payer MEDICARE, SELFPAY ==
--- NOTE | ~2025-03-20 | MM_ITS ---
EXAMINATION: MM screening [facility] BI w anuja HISTORY: Screening TECHNIQUE: Craniocaudal and mediolateral oblique 3-D tomosynthesis images were obtained and synthetic 2-D images were generated. CAD analysis was submitted and interpreted. COMPARISON: Comparison to multiple prior studies sequentially, with oldest reviewed study dated 11/08/2018. BREAST PARENCHYMAL COMPOSITION: There are scattered areas of fibroglandular density. FINDINGS: There is no evidence of suspicious mass, calcification, or architectural distortion to suggest malignancy in either breast. Scattered benign-appearing calcifications are present. IMPRESSION: 1. No mammographic evidence of malignancy. 2. Recommend routine screening mammography in one year. BI-RADS Category 2: Benign finding(s). Reviewed, dictated and finalized at location B. HTER
== END 2025-03-20 10:19 | disposition home or self-care (01) ==
PROVIDERS: PCP Family Medicine; Visit Provider Obstetrics & Gynecology
DX: Z12.31 Encounter for screening mammogram for malignant neoplasm of breast (principal)
CPT/HCPCS: 77063; 77067